=== PATIENT | male | born 1965 | race African-American/Black ===

== ENCOUNTER 2018-02-22 16:12 | Inpatient (IN) | payer OTHER ==
[2018-02-22 18:55] VITALS: BMI 20.5
[2018-02-22] MEDS ORDERED: METHADONE HCL 10 MG TABLET (FOR DETOX USE ONLY) PO ONE ×2 (22:00→23:58)
[2018-02-22] MEDS ORDERED: MELATONIN 5 MG TABLETS PO PRN (22:00)
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
[2018-02-22] MEDS ORDERED: ACETAMINOPHEN 325 MG TABLET (FP) PO PRN (23:58)
[2018-02-22] MEDS ORDERED: MAGNESIUM HYDROX 2400MG/30ML ORAL SUSPENSION 30 ML CUP PO PRN (23:58)
[2018-02-22] MEDS ORDERED: guaiFENesin/D-METHORPHAN HB 10 ML UNIT-DOSE CUPS PO PRN (23:58)
[2018-02-22] MEDS ORDERED: MENTHOL/PHENOL 1 EACH UD MM PRN (23:58)
[2018-02-22] MEDS ORDERED: chlordiazePOXIDE HCL 25 MG CAPSULE PO PRN (23:58)
[2018-02-22] MEDS ORDERED: MAGNESIUM CITRATE 300 ML BOTTLE PO PRN (23:58)
[2018-02-22] MEDS ORDERED: IBUPROFEN 400 MG TABLET (FP) PO PRN (23:58)
[2018-02-22] MEDS ORDERED: MAG HYDROX/AL HYDROX/SIMETH 30 ML UNIT-DOSE CUP PO PRN (23:58)
[2018-02-22] MEDS ORDERED: NICOTINE POLACRILEX 2 MG GUM BC PRN (23:58)
[2018-02-22] MEDS ORDERED: P-EPHED 60MG/TRIPROLIDI 2.5MG TABLET PO PRN (23:58)
[2018-02-22] MEDS ORDERED: LOPERAMIDE HCL 2 MG CAPSULE PO PRN (23:58)
[2018-02-23] MEDS ORDERED: chlordiazePOXIDE HCL 25 MG CAPSULE PO PRN (02:03)
[2018-02-23] MEDS ORDERED: METHADONE HCL 10 MG TABLET (FOR DETOX USE ONLY) PO ONE ×4 (02:03→22:00)
[2018-02-23] MEDS: chlordiazePOXIDE HCL 25 MG CAPSULE PO SCH ×6 (04:45→22:48)
[2018-02-23] MEDS ORDERED: chlordiazePOXIDE HCL 25 MG CAPSULE PO SCH (05:00)
[2018-02-23] MEDS ORDERED: METHADONE HCL 10 MG TABLET (FOR DETOX USE ONLY) PO SCH (10:00)
[2018-02-23] MEDS: PRENATAL VITAMINS W/ FOLIC ACID TABLET (FP) PO SCH (10:05)
[2018-02-23] MEDS: NICOTINE 14 MG/24 HOURS TOPICAL PATCH TD SCH (10:06)
--- NOTE | 2018-02-23 10:17 | PN ---
[facility] CIWA - CIWA Score Nausea/Vomitin Muscle Tremors: 3 Anxiety: 3 Agitation: 2 Paroxysmal Sweats: 1-Minimal Palms Moist Orientation: 0-Oriented Tacttile Disturbances: 1-Very Mild Itch/Numbness Auditory Disturbances: 1-Very Mild Visual Disturbances: 0-None Headache: 2-Mild CIWA-Ar Total Score: 16 [facility]HS COWS - Scale Resting Pulse: 0= [place] 80 or Below Sweatin= Chills/Flushing Restless Observation: 3= Extraneous Movement Pupil Size: 1= Pupils >than Normal Bone or Joint Aches: 2= Severe Diffuse Aches Runny Nose/ Eye Tearin= Runny Nose/Eyes GI Upset > 30mins: 3= Vomiting/Diarrhea Tremor Observation of Outstretched Hands: 2= Slight Tremor Visible Yawning Observation: 1= 1-2x During Session Anxiety or Irritability: 2=Irritable/Anxious Goose Flesh Skin: 0=Smooth Skin COWS Score: 17 [facility] Progress Note (SOAP) Subjective: alert,irritable,anxious,interrupted sleep,pain in the body and back,tremor Objective: 02/23/18 10:15 Vital Signs Temperature 98.1 F 02/23/18 09:48 Pulse Rate 66 02/23/18 09:48 Respiratory Rate 18 02/23/18 09:48 Blood Pressure 122/67 02/23/18 09:48 O2 Sat by Pulse Oximetry (%) ekg nsr,normal ecg qt/qtc 380/380 labs pending Assessment: 02/23/18 10:16 withdrawal symptom Plan: continue detox
[2018-02-23 10:32] LABS: MCH 31.9 pg (25.7-33.7); WHITE BLOOD COUNT 5.7 K/mm3 (4.0-10.0)
[2018-02-23 10:39] LABS: HEMATOCRIT 36.4 % (35.4-49); HEMOGLOBIN 12.2 GM/dL (11.7-16.9); MCHC 33.6 g/dl (32.0-35.9); MEAN CELL VOLUME 94.9 fl (80-96); PLATELET COUNT 169 K/MM3 (134-434); RBC 3.83 M/mm3 (4.00-5.60); RDW 13.3 % (11.9-15.9)
[2018-02-23 10:41] LABS: CHLORIDE 106 mmol/L (98-107); POTASSIUM 4.3 mmol/L (3.5-5.1); SODIUM 141 mmol/L (136-145)
[2018-02-23 10:51] LABS: ALBUMIN 3.2 g/dl (3.4-5.0); ALK PHOS 76 U/L (45-117); ANION GAP 5 (8-16); BILIRUBIN,TOTAL 0.5 mg/dL (0.2-1.0); BLOOD UREA NITROGEN 17 mg/dL (7-18); CALCIUM 8.5 mg/dL (8.5-10.1); CO2 30 mmol/L (21-32); GLUCOSE,RANDOM 89 mg/dL (74-106); SGOT/AST 19 U/L (15-37); SGPT/ALT 17 U/L (12-78); TOT PROT 5.8 g/dl (6.4-8.2)
[2018-02-23 18:56] LABS: URINE APPEARANCE CLEAR; URINE BILIRUBIN NEGATIVE (<2.0 mg/dL); URINE COLOR LTYELLOW; URINE GLUCOSE (UA) NEGATIVE (NEGATIVE); URINE KETONE NEGATIVE (NEGATIVE); URINE LEUK ESTERASE NEGATIVE (NEGATIVE); URINE NITRITE NEGATIVE (NEGATIVE); URINE PROTEIN NEGATIVE (NEGATIVE); URINE UROBILINOGEN NEGATIVE mg/dL (0.2-1.0)
[2018-02-23 19:07] LABS: URINE MUCUS RARE
[2018-02-23] MEDS ORDERED: THIAMINE HCL 100 MG TABLET (FP) PO SCH (22:00)
[2018-02-24] MEDS ORDERED: chlordiazePOXIDE 5 MG CAPSULE PO SCH (05:00)
[2018-02-24] MEDS: chlordiazePOXIDE HCL 25 MG CAPSULE PO SCH ×3 (06:12→18:03)
--- NOTE | 2018-02-24 08:56 | EKG ---
Test Reason : Blood Pressure : / mmHG Vent. Rate : 060 BPM Atrial Rate : 060 BPM P-R Int : 166 ms QRS Dur : 094 ms QT Int : 380 ms P-R-T Axes : 053 073 058 degrees QTc Int : 380 ms NORMAL SINUS RHYTHM NORMAL ECG WHEN COMPARED WITH ECG OF 16-SEP-2015 20:47, NO SIGNIFICANT CHANGE WAS FOUND Confirmed by ANNETTE REDDY MD ([id number]) on 02/24/2018 8:55:39 AM Referred By: Confirmed By:ANNETTE REDDY MD
[2018-02-24] MEDS ORDERED: METHADONE HCL 5 MG TABLET (FOR DETOX USE ONLY) PO SCH (10:00)
[2018-02-24] MEDS ORDERED: METHADONE HCL 10 MG TABLET (FOR DETOX USE ONLY) PO SCH (10:00)
[2018-02-24] MEDS: NICOTINE 14 MG/24 HOURS TOPICAL PATCH TD SCH (10:07)
[2018-02-24] MEDS: PRENATAL VITAMINS W/ FOLIC ACID TABLET (FP) PO SCH (10:08)
--- NOTE | 2018-02-24 11:26 | PN ---
[facility] CIWA - CIWA Score Nausea/Vomitin-Mild Nausea/No Vomiting Muscle Tremors: 4-Moderate,w/Arms Extend Anxiety: 3 Agitation: 3 Paroxysmal Sweats: 1-Minimal Palms Moist Orientation: 1-Uncertain about Date Tacttile Disturbances: 1-Very Mild Itch/Numbness Auditory Disturbances: 0-None Visual Disturbances: 0-None Headache: 0-None Present CIWA-Ar Total Score: 14 S COWS - Scale Resting Pulse: 0= [place] 80 or Below Sweatin= Chills/Flushing Restless Observation: 1= Difficult to Sit Still Pupil Size: 0= Normal to Room Light Bone or Joint Aches: 2= Severe Diffuse Aches Runny Nose/ Eye Tearin= Nasal Congestion GI Upset > 30mins: 2= Nausea/Diarrhea Tremor Observation of Outstretched Hands: 2= Slight Tremor Visible Yawning Observation: 1= 1-2x During Session Anxiety or Irritability: 1=Feels Anxious/Irritable Goose Flesh Skin: 3=Piloerection COWS Score: 14 [facility] Progress Note (SOAP) Subjective: trouble sleep at night sweat tremor body aches chill cold Objective: 02/24/18 11:36 Vital Signs Temperature 98.2 F 02/24/18 09:53 Pulse Rate 73 02/24/18 09:53 Respiratory Rate 18 02/24/18 09:53 Blood Pressure 131/76 02/24/18 09:53 O2 Sat by Pulse Oximetry (%) Laboratory Last Values WBC 5.7 K/mm3 (4.0-10.0) 02/23/18 08:00 RBC 3.83 M/mm3 (4.00-5.60) L 02/23/18 08:00 Hgb 12.2 GM/dL (11.7-16.9) 02/23/18 08:00 Hct 36.4 % (35.4-49) 02/23/18 08:00 MCV 94.9 fl (80-96) 02/23/18 08:00 MCH 31.9 pg (25.7-33.7) 02/23/18 08:00 MCHC 33.6 g/dl (32.0-35.9) 02/23/18 08:00 RDW 13.3 % (11.9-15.9) 02/23/18 08:00 Plt Count 169 K/MM3 (134-434) 02/23/18 08:00 MPV 10.0 fl (7.5-11.1) 02/23/18 08:00 Manual Slide Review 02/23/18 08:00 Platelet Comment No clumping noted 02/23/18 08:00 Sodium 141 mmol/L (136-145) 02/23/18 08:00 Potassium 4.3 mmol/L (3.5-5.1) 02/23/18 08:00 Chloride 106 mmol/L (98-107) 02/23/18 08:00 Carbon Dioxide 30 mmol/L (21-32) 02/23/18 08:00 Anion Gap 5 (8-16) L 02/23/18 08:00 BUN 17 mg/dL (7-18) 02/23/18 08:00 Creatinine 1.0 mg/dL (0.7-1.3) 02/23/18 08:00 Creat Clearance w eGFR > 60 (>60) 02/23/18 08:00 Random Glucose 89 mg/dL (74-106) 02/23/18 08:00 Calcium 8.5 mg/dL (8.5-10.1) 02/23/18 08:00 Total Bilirubin 0.5 mg/dL (0.2-1.0) 02/23/18 08:00 AST 19 U/L (15-37) D 02/23/18 08:00 ALT 17 U/L (12-78) D 02/23/18 08:00 Alkaline Phosphatase 76 U/L (45-117) 02/23/18 08:00 Total Protein 5.8 g/dl (6.4-8.2) L 02/23/18 08:00 Albumin 3.2 g/dl (3.4-5.0) L 02/23/18 08:00 Urine Color Ltyellow 02/23/18 Unknown Urine Appearance Clear 02/23/18 Unknown Urine pH 6.0 (5.0-8.0) 02/23/18 Unknown Ur Specific [place] 1.015 (1.001-1.035) 02/23/18 Unknown Urine Protein Negative (NEGATIVE) 02/23/18 Unknown Urine Glucose (UA) Negative (NEGATIVE) 02/23/18 Unknown Urine Ketones Negative (NEGATIVE) 02/23/18 Unknown Urine Blood 1+ (NEGATIVE) H 02/23/18 Unknown Urine Nitrite Negative (NEGATIVE) 02/23/18 Unknown Urine Bilirubin Negative (<2.0 mg/dL) 02/23/18 Unknown Urine Urobilinogen Negative mg/dL (0.2-1.0) 02/23/18 Unknown Ur Leukocyte Esterase Negative (NEGATIVE) 02/23/18 Unknown Urine WBC (Auto) 3 /hpf (3-5) 02/23/18 Unknown Urine RBC (Auto) 22 /hpf (0-3) 02/23/18 Unknown Urine Mucus Rare 02/23/18 Unknown RPR Titer Nonreactive (NONREACTIVE) 02/23/18 08:00 HIV 1&2 Antibody Screen Negative 02/23/18 08:00 HIV P24 Antigen Negative 02/23/18 08:00 labnoted Assessment: 02/24/18 11:36 withdrawal sx Plan: continue detox
[2018-02-24 17:05] VITALS: BP 132/79; PULSE 73; TEMP 98.2
--- NOTE | 2018-02-24 19:48 | PN ---
[facility] Progress Note Note: called by nurse stated that patient would like to leave,does mot want to complete treatment declined to give reason, seen by counselor,all attempts to convince patient to stay by counselor and nurse with no avail, patient did not want to wait,signed release ama
--- NOTE | 2018-02-24 19:55 | DS ---
[facility] Detox Discharge Summary Admission Date: 02/22/18 Discharge Date: 02/24/18 - History Present History: Alcohol Dependence, Opioid Dependence Additional Comments: patient did not want to complete treatment,seen by counselor,did not give reason for leaving,all attempts to convince patient to stay by counselor and nurse with no avail,eladio release ama,did not want to wait Pertinent Past History: asthma history of left hip replacement nicotine dependence - Physical Exam Results Vital Signs: Vital Signs Temperature 98.2 F 02/24/18 17:04 Pulse Rate 73 02/24/18 17:04 Respiratory Rate 18 02/24/18 17:04 Blood Pressure 132/79 02/24/18 17:04 O2 Sat by Pulse Oximetry (%) Pertinent Admission Physical Exam Findings: withdrawal signs and symptom Vital Signs Temperature 98.2 F 02/24/18 17:04 Pulse Rate 73 02/24/18 17:04 Respiratory Rate 18 02/24/18 17:04 Blood Pressure 132/79 02/24/18 17:04 O2 Sat by Pulse Oximetry (%) Laboratory Last Values WBC 5.7 K/mm3 (4.0-10.0) 02/23/18 08:00 RBC 3.83 M/mm3 (4.00-5.60) L 02/23/18 08:00 Hgb 12.2 GM/dL (11.7-16.9) 02/23/18 08:00 Hct 36.4 % (35.4-49) 02/23/18 08:00 MCV 94.9 fl (80-96) 02/23/18 08:00 MCH 31.9 pg (25.7-33.7) 02/23/18 08:00 MCHC 33.6 g/dl (32.0-35.9) 02/23/18 08:00 RDW 13.3 % (11.9-15.9) 02/23/18 08:00 Plt Count 169 K/MM3 (134-434) 02/23/18 08:00 MPV 10.0 fl (7.5-11.1) 02/23/18 08:00 Manual Slide Review 02/23/18 08:00 Platelet Comment No clumping noted 02/23/18 08:00 Sodium 141 mmol/L (136-145) 02/23/18 08:00 Potassium 4.3 mmol/L (3.5-5.1) 02/23/18 08:00 Chloride 106 mmol/L (98-107) 02/23/18 08:00 Carbon Dioxide 30 mmol/L (21-32) 02/23/18 08:00 Anion Gap 5 (8-16) L 02/23/18 08:00 BUN 17 mg/dL (7-18) 02/23/18 08:00 Creatinine 1.0 mg/dL (0.7-1.3) 02/23/18 08:00 Creat Clearance w eGFR > 60 (>60) 02/23/18 08:00 Random Glucose 89 mg/dL (74-106) 02/23/18 08:00 Calcium 8.5 mg/dL (8.5-10.1) 02/23/18 08:00 Total Bilirubin 0.5 mg/dL (0.2-1.0) 02/23/18 08:00 AST 19 U/L (15-37) D 02/23/18 08:00 ALT 17 U/L (12-78) D 02/23/18 08:00 Alkaline Phosphatase 76 U/L (45-117) 02/23/18 08:00 Total Protein 5.8 g/dl (6.4-8.2) L 02/23/18 08:00 Albumin 3.2 g/dl (3.4-5.0) L 02/23/18 08:00 Urine Color Ltyellow 02/23/18 Unknown Urine Appearance Clear 02/23/18 Unknown Urine pH 6.0 (5.0-8.0) 02/23/18 Unknown Ur Specific [place] 1.015 (1.001-1.035) 02/23/18 Unknown Urine Protein Negative (NEGATIVE) 02/23/18 Unknown Urine Glucose (UA) Negative (NEGATIVE) 02/23/18 Unknown Urine Ketones Negative (NEGATIVE) 02/23/18 Unknown Urine Blood 1+ (NEGATIVE) H 02/23/18 Unknown Urine Nitrite Negative (NEGATIVE) 02/23/18 Unknown Urine Bilirubin Negative (<2.0 mg/dL) 02/23/18 Unknown Urine Urobilinogen Negative mg/dL (0.2-1.0) 02/23/18 Unknown Ur Leukocyte Esterase Negative (NEGATIVE) 02/23/18 Unknown Urine WBC (Auto) 3 /hpf (3-5) 02/23/18 Unknown Urine RBC (Auto) 22 /hpf (0-3) 02/23/18 Unknown Urine Mucus Rare 02/23/18 Unknown RPR Titer Nonreactive (NONREACTIVE) 02/23/18 08:00 HIV 1&2 Antibody Screen Negative 02/23/18 08:00 HIV P24 Antigen Negative 02/23/18 08:00 - Medication Discharge Medications: Ambulatory Orders NK [No Known Home Medication] 02/22/18 - Diagnosis (1) Opioid dependence with withdrawal Current Visit: Yes Status: Chronic (2) Alcohol dependence with uncomplicated withdrawal Current Visit: Yes Status: Chronic (3) Nicotine dependence Current Visit: Yes Status: Chronic Qualifiers: Nicotine product type: cigarettes Substance use status: uncomplicated Qualified Code(s): F17.210 - Nicotine dependence, cigarettes, uncomplicated (4) Asthma Current Visit: Yes Status: Acute (5) History of left hip replacement Current Visit: Yes Status: Acute - AMA Did Patient Leave Against Medical Advice: Yes
[2018-02-25] MEDS ORDERED: chlordiazePOXIDE 5 MG CAPSULE PO SCH (05:00)
[2018-02-25] MEDS ORDERED: chlordiazePOXIDE HCL 10 MG CAPSULE PO SCH (05:00)
[2018-02-25] MEDS ORDERED: METHADONE HCL 5 MG TABLET (FOR DETOX USE ONLY) PO SCH (10:00)
[2018-02-26] MEDS ORDERED: chlordiazePOXIDE HCL 10 MG CAPSULE PO SCH (05:00)
[2018-02-26] MEDS ORDERED: METHADONE HCL 10 MG TABLET (FOR DETOX USE ONLY) PO SCH (10:00)
[2018-02-27] MEDS ORDERED: METHADONE HCL 5 MG TABLET (FOR DETOX USE ONLY) PO SCH (06:00)
[2018-02-27] MEDS ORDERED: METHADONE HCL 10 MG TABLET (FOR DETOX USE ONLY) PO SCH (10:00)
[2018-02-28] MEDS ORDERED: METHADONE HCL 5 MG TABLET (FOR DETOX USE ONLY) PO SCH (06:00)
== END 2018-02-24 19:40 | disposition left against medical advice (07) | DRG 770 ==
LOC: YASAS 16:12 → Y6N 20:22
PROVIDERS: ADMIT Surgery; ATTEND Surgery
PROC: HZ2ZZZZ Detoxification Services for Substance Abuse Treatment (ICD-10-PCS; principal; 2018-02-22)
DX: F11.23 Opioid dependence with withdrawal (principal); F10.230 Alcohol dependence with withdrawal, uncomplicated; F17.210 Nicotine dependence, cigarettes, uncomplicated; J45.909 Unspecified asthma, uncomplicated; Z96.642 Presence of left artificial hip joint; Z91.013 Allergy to seafood
CPT/HCPCS: 36415; 80053; 81003; 81015; 85027; 86593; 87389; 93005; 93010

== ENCOUNTER 2018-03-29 14:03 | Inpatient (IN) | payer OTHER ==
[2018-03-29 17:23] VITALS: BMI 19.2
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
[2018-03-29] MEDS ORDERED: guaiFENesin/D-METHORPHAN HB 10 ML UNIT-DOSE CUPS PO PRN (20:30)
[2018-03-29] MEDS ORDERED: P-EPHED 60MG/TRIPROLIDI 2.5MG TABLET PO PRN (20:30)
[2018-03-29] MEDS ORDERED: IBUPROFEN 400 MG TABLET (FP) PO PRN (20:30)
[2018-03-29] MEDS ORDERED: MAGNESIUM HYDROX 2400MG/30ML ORAL SUSPENSION 30 ML CUP PO PRN (20:30)
[2018-03-29] MEDS ORDERED: MENTHOL/PHENOL 1 EACH UD MM PRN (20:30)
[2018-03-29] MEDS ORDERED: NICOTINE POLACRILEX 2 MG GUM BC PRN (20:30)
[2018-03-29] MEDS ORDERED: chlordiazePOXIDE HCL 25 MG CAPSULE PO PRN (20:30)
[2018-03-29] MEDS ORDERED: LOPERAMIDE HCL 2 MG CAPSULE PO PRN (20:30)
[2018-03-29] MEDS ORDERED: ACETAMINOPHEN 325 MG TABLET (FP) PO PRN (20:30)
[2018-03-29] MEDS ORDERED: MAGNESIUM CITRATE 300 ML BOTTLE PO PRN (20:30)
[2018-03-29] MEDS ORDERED: hydrOXYzine PAMOATE 50 MG CAPSULE (FP) PO PRN (20:30)
[2018-03-29] MEDS ORDERED: MAG HYDROX/AL HYDROX/SIMETH 30 ML UNIT-DOSE CUP PO PRN (20:30)
[2018-03-29] MEDS ORDERED: chlordiazePOXIDE HCL 25 MG CAPSULE PO ONE (20:45)
[2018-03-29] MEDS ORDERED: METHADONE HCL 10 MG TABLET (FOR DETOX USE ONLY) PO ONE ×2 (20:45→23:00)
[2018-03-29] MEDS: chlordiazePOXIDE HCL 25 MG CAPSULE PO SCH (23:01)
[2018-03-29] MEDS: THIAMINE HCL 100 MG TABLET (FP) PO SCH (23:01)
[2018-03-30] MEDS: chlordiazePOXIDE HCL 25 MG CAPSULE PO SCH ×4 (05:59→22:38)
[2018-03-30] MEDS ORDERED: METHADONE HCL 10 MG TABLET (FOR DETOX USE ONLY) PO SCH (10:00)
[2018-03-30] MEDS: PRENATAL VITAMINS W/ FOLIC ACID TABLET (FP) PO SCH (10:22)
--- NOTE | 2018-03-30 10:26 | PN ---
[facility] CIWA - CIWA Score Nausea/Vomitin-No Nausea/No Vomiting Muscle Tremors: 4-Moderate,w/Arms Extend Anxiety: 4-Mod. Anxious/Guarded Agitation: 4-Moderately Restless Paroxysmal Sweats: 2 Orientation: 0-Oriented Tacttile Disturbances: 0-None Auditory Disturbances: 0-None Visual Disturbances: 0-None Headache: 0-None Present CIWA-Ar Total Score: 14 [facility] COWS - Scale Resting Pulse: 0= [place] 80 or Below Sweatin= Chills/Flushing Restless Observation: 3= Extraneous Movement Pupil Size: 2= Moderately Dilated Bone or Joint Aches: 4=Acute Joint/Muscle Pain Runny Nose/ Eye Tearin= None GI Upset > 30mins: 0= None Tremor Observation of Outstretched Hands: 1= Tremor [place], Not Seen Yawning Observation: 2= >3x During Session Anxiety or Irritability: 2=Irritable/Anxious Goose Flesh Skin: 0=Smooth Skin COWS Score: 15 [facility] Progress Note (SOAP) Subjective: ANXIETY,SWEATS,FATIGUE. OOB, NAD. Objective: 03/30/18 10:25 Vital Signs 03/30/18 03/30/18 03/30/18 03:30 06:30 06:49 Temperature 97.6 F Pulse Rate 43 L Respiratory 18 18 18 Rate Blood Pressure 102/66 03/30/18 09:29 Temperature 97.7 F Pulse Rate 64 Respiratory 18 Rate Blood Pressure 95/59 LABS PENDING Assessment: 03/30/18 10:26 WITHDRAWAL SX Plan: CONTINUE DETOX INCREASE PO FLUIDS
[2018-03-30 10:37] LABS: URINE APPEARANCE CLEAR; URINE BILIRUBIN NEGATIVE (<2.0 mg/dL); URINE COLOR LTYELLOW; URINE GLUCOSE (UA) NEGATIVE (NEGATIVE); URINE KETONE NEGATIVE (NEGATIVE); URINE LEUK ESTERASE NEGATIVE (NEGATIVE); URINE NITRITE NEGATIVE (NEGATIVE); URINE PROTEIN NEGATIVE (NEGATIVE)
[2018-03-30 10:40] LABS: ALBUMIN 3.1 g/dl (3.4-5.0); ALK PHOS 67 U/L (45-117); ANION GAP 10 MMOL/L (8-16); BILIRUBIN,TOTAL 0.4 mg/dL (0.2-1.0); BLOOD UREA NITROGEN 18 mg/dL (7-18); CALCIUM 8.3 mg/dL (8.5-10.1); CHLORIDE 109 mmol/L (98-107); CO2 26 mmol/L (21-32); GLUCOSE,RANDOM 93 mg/dL (74-106); POTASSIUM 4.2 mmol/L (3.5-5.1); SGOT/AST 14 U/L (15-37); SGPT/ALT 18 U/L (12-78); SODIUM 145 mmol/L (136-145); TOT PROT 5.8 g/dl (6.4-8.2)
[2018-03-30 10:41] LABS: HEMATOCRIT 38.4 % (35.4-49); HEMOGLOBIN 12.8 GM/dL (11.7-16.9); MCH 31.6 pg (25.7-33.7); MCHC 33.3 g/dl (32.0-35.9); MEAN CELL VOLUME 94.9 fl (80-96); MEAN PLT VOLUME 11.1 fl (7.5-11.1); PLATELET COUNT 147 K/MM3 (134-434); RBC 4.04 M/mm3 (4.00-5.60); RDW 13.8 % (11.9-15.9); WHITE BLOOD COUNT 4.7 K/mm3 (4.0-10.0)
--- NOTE | 2018-03-30 12:44 | CONSULT ---
[facility] Psychiatric Consult - Data Date of interview: 03/30/18 Admission source: [facility] Identifying data: Readmission to [facility] for this 53 y/o AA male self- referred for detoxification treatment (heroin,cocaine,alcohol).Admitted to [address] [place] [address].Patient is single,a father of six,homeless,unemployed and currently supported on [facility] benefits. Substance Abuse History: Confirmed by the patient in this interview.Smoking history: Current every day smoker. Have you smoked in the past 12 months: Yes. Aproximately how many cigarettes per day: 5. Hx Chewing Tobacco Use: No. Initiated information on smoking cessation: Yes. 'Breaking Loose' booklet given : 03/29/18. - Substance & Tx. History. Hx Alcohol Use: No (Beer, vodka, henessey). Hx Substance Use: Yes. Substance Use Type: Cocaine, Heroin. Hx Substance Use Treatment: Yes. - Substances Abused. Cocaine. Route: Inhalation. Frequency: Daily. Amount used: 5 bags. Age of first use: 17. Date of Last Use: 03/28/18. Heroin. Route: Inhalation. Frequency: Daily. Amount used: 5 bags. Age of first use: 31. Date of Last Use: 03/28/18. Alcohol. Route: Oral. Frequency: 3-6 times per week. Amount used: 1 pint, 4 beers. Age of first use: 20. Date of Last Use: 03/27/18 Medical History: Bronchial asthma,antecedent of three severe overdoses with heroin and a history of orthosurgeries (total left hip replacement in 2010 + ankle surgery in 2006). Psychiatric History: Patient denies.Mr Jean Baptiste used to attend [facility] program in [place] (was on suboxone maintenance).No reported history of suicide attempts. Physical/Sexual Abuse/Trauma History: Mr Jean Baptiste denies history of abuse. Additional Comment: Urine Drug Screen Results: MARCIE-Cocaine, OPI-Opiates, OXY- Oxycodone.Noted. Mental Status Exam - Mental Status Exam Alert and Oriented to: Time, Place, Person Cognitive Function: Good Patient Appearance: Well Groomed Mood: Withdrawn, Anxious Affect: Mood Congruent Patient Behavior: Fatigued, Appropriate, Cooperative Speech Pattern: Clear, Appropriate Voice Loudness: Normal Thought Process: Goal Oriented Thought Disorder: Not Present Hallucinations: Denies Suicidal Ideation: Denies Homicidal Ideation: Denies Insight/Judgement: Poor Sleep: Poorly, Difficulty falling asleep Appetite: Fair Muscle strength/Tone: Normal Gait/Station: Normal Psychiatric Findings - Problem List ([place] 1, 2,3) (1) Opioid dependence with withdrawal Current Visit: Yes Status: Acute (2) Alcohol dependence with uncomplicated withdrawal Current Visit: Yes Status: Acute (3) Cocaine dependence, uncomplicated Current Visit: Yes Status: Acute (4) Nicotine dependence Current Visit: Yes Status: Acute Qualifiers: Nicotine product type: cigarettes Substance use status: in withdrawal Qualified Code(s): F17.213 - Nicotine dependence, cigarettes, with withdrawal Comment: counseled cessation - not ready (5) Insomnia Current Visit: Yes Status: Acute - Initial Treatment Plan Initial Treatment Plan: Psychoeducation.Sleep hygiene.Detoxification in progress.Ambien 5 mg po hs prn.Patient is made aware of risk of sleep- walking.Agrees to careplan.Observation.
[2018-03-30] MEDS: THIAMINE HCL 100 MG TABLET (FP) PO SCH (22:38)
[2018-03-31] MEDS: chlordiazePOXIDE HCL 25 MG CAPSULE PO SCH ×3 (06:09→18:05)
[2018-03-31] MEDS: METHADONE HCL 5 MG TABLET (FOR DETOX USE ONLY) PO SCH (10:26)
[2018-03-31] MEDS: PRENATAL VITAMINS W/ FOLIC ACID TABLET (FP) PO SCH (10:26)
--- NOTE | 2018-03-31 13:25 | PN ---
[facility] CIWA - CIWA Score Nausea/Vomitin Muscle Tremors: 3 Anxiety: 3 Agitation: 2 Paroxysmal Sweats: 3 Orientation: 0-Oriented Tacttile Disturbances: 0-None Auditory Disturbances: 0-None Visual Disturbances: 0-None Headache: 1-Very Mild CIWA-Ar Total Score: 14 [facility] COWS - Scale Resting Pulse: 0= [place] 80 or Below Sweatin= Chills/Flushing Restless Observation: 3= Extraneous Movement Pupil Size: 0= Normal to Room Light Bone or Joint Aches: 2= Severe Diffuse Aches Runny Nose/ Eye Tearin= Runny Nose/Eyes GI Upset > 30mins: 2= Nausea/Diarrhea Tremor Observation of Outstretched Hands: 2= Slight Tremor Visible Yawning Observation: 1= 1-2x During Session Anxiety or Irritability: 2=Irritable/Anxious Goose Flesh Skin: 0=Smooth Skin COWS Score: 15 S Progress Note (SOAP) Subjective: Interrupted sleep, anxious, sweating Objective: 03/31/18 13:24 Last Vital Signs Temp Pulse Resp BP Pulse Ox 97.1 F L 77 18 120/79 03/31/18 13:08 03/31/18 13:08 03/31/18 13:08 03/31/18 13:08 Laboratory Tests 03/30/18 03/30/18 03/30/18 08:00 08:00 08:00 WBC RBC Hgb Hct MCV MCH MCHC RDW Plt Count MPV Sodium 145 Potassium 4.2 Chloride 109 H Carbon Dioxide 26 Anion Gap 10 BUN 18 Creatinine 1.0 Creat Clearance w eGFR > 60 Random Glucose 93 Calcium 8.3 L Total Bilirubin 0.4 AST 14 L D ALT 18 Alkaline Phosphatase 67 Total Protein 5.8 L Albumin 3.1 L Urine Color Urine Appearance Urine pH Ur Specific [place] Urine Protein Urine Glucose (UA) Urine Ketones Urine Blood Urine Nitrite Urine Bilirubin Urine Urobilinogen Ur Leukocyte Esterase RPR Titer Nonreactive HIV 1&2 Antibody Screen Negative HIV P24 Antigen Negative 03/30/18 03/30/18 08:20 09:00 WBC 4.7 RBC 4.04 Hgb 12.8 Hct 38.4 MCV 94.9 MCH 31.6 MCHC 33.3 RDW 13.8 Plt Count 147 MPV 11.1 D Sodium Potassium Chloride Carbon Dioxide Anion Gap BUN Creatinine Creat Clearance w eGFR Random Glucose Calcium Total Bilirubin AST ALT Alkaline Phosphatase Total Protein Albumin Urine Color Ltyellow Urine Appearance Clear Urine pH 6.0 Ur Specific [place] 1.017 Urine Protein Negative Urine Glucose (UA) Negative Urine Ketones Negative Urine Blood Negative Urine Nitrite Negative Urine Bilirubin Negative Urine Urobilinogen 2.0 Ur Leukocyte Esterase Negative RPR Titer HIV 1&2 Antibody Screen HIV P24 Antigen Labs reviewed Assessment: 03/31/18 13:24 Withdrawal symptoms Plan: Continue detox
[2018-03-31] MEDS: chlordiazePOXIDE 5 MG CAPSULE PO SCH (22:25)
[2018-03-31] MEDS: THIAMINE HCL 100 MG TABLET (FP) PO SCH (22:25)
[2018-04-01] MEDS: chlordiazePOXIDE 5 MG CAPSULE PO SCH ×3 (05:14→17:31)
[2018-04-01] MEDS: PRENATAL VITAMINS W/ FOLIC ACID TABLET (FP) PO SCH (10:31)
[2018-04-01] MEDS: METHADONE HCL 5 MG TABLET (FOR DETOX USE ONLY) PO SCH (10:31)
--- NOTE | 2018-04-01 10:50 | PN ---
[facility] Progress Note (SOAP) Subjective: SLIGHT ANXIETY, SWEATS, FATIGUE. Objective: 04/01/18 10:50 Vital Signs 04/01/18 04/01/18 04/01/18 03:20 06:11 06:30 Temperature 98 F Pulse Rate 59 L Respiratory 18 18 18 Rate Blood Pressure 117/74 04/01/18 04/01/18 09:42 10:43 Temperature 97.6 F 97.6 F Pulse Rate 68 68 Respiratory 18 18 Rate Blood Pressure 109/64 109/64 Laboratory Tests 03/30/18 03/30/18 03/30/18 08:00 08:00 08:00 WBC RBC Hgb Hct MCV MCH MCHC RDW Plt Count MPV Sodium 145 Potassium 4.2 Chloride 109 H Carbon Dioxide 26 Anion Gap 10 BUN 18 Creatinine 1.0 Creat Clearance w eGFR > 60 Random Glucose 93 Calcium 8.3 L Total Bilirubin 0.4 AST 14 L D ALT 18 Alkaline Phosphatase 67 Total Protein 5.8 L Albumin 3.1 L Urine Color Urine Appearance Urine pH Ur Specific [place] Urine Protein Urine Glucose (UA) Urine Ketones Urine Blood Urine Nitrite Urine Bilirubin Urine Urobilinogen Ur Leukocyte Esterase RPR Titer Nonreactive HIV 1&2 Antibody Screen Negative HIV P24 Antigen Negative 03/30/18 03/30/18 08:20 09:00 WBC 4.7 RBC 4.04 Hgb 12.8 Hct 38.4 MCV 94.9 MCH 31.6 MCHC 33.3 RDW 13.8 Plt Count 147 MPV 11.1 D Sodium Potassium Chloride Carbon Dioxide Anion Gap BUN Creatinine Creat Clearance w eGFR Random Glucose Calcium Total Bilirubin AST ALT Alkaline Phosphatase Total Protein Albumin Urine Color Ltyellow Urine Appearance Clear Urine pH 6.0 Ur Specific [place] 1.017 Urine Protein Negative Urine Glucose (UA) Negative Urine Ketones Negative Urine Blood Negative Urine Nitrite Negative Urine Bilirubin Negative Urine Urobilinogen 2.0 Ur Leukocyte Esterase Negative RPR Titer HIV 1&2 Antibody Screen HIV P24 Antigen Assessment: 04/01/18 10:50 WITHDRAWAL SX Plan: CONTINUE DETOX
--- NOTE | 2018-04-01 11:25 | EKG ---
Test Reason : Blood Pressure : / mmHG Vent. Rate : 047 BPM Atrial Rate : 047 BPM P-R Int : 160 ms QRS Dur : 094 ms QT Int : 394 ms P-R-T Axes : 057 076 063 degrees QTc Int : 348 ms SINUS BRADYCARDIA OTHERWISE NORMAL ECG WHEN COMPARED WITH ECG OF 23-FEB-2018 02:26, NO SIGNIFICANT CHANGE WAS FOUND Confirmed by EDWARD HALL MD ([id number]) on 04/01/2018 11:24:51 AM Referred By: Oneida Casillas Confirmed By:EDWARD HALL MD
[2018-04-01] MEDS: MELATONIN 5 MG TABLETS PO PRN (21:56)
[2018-04-01] MEDS: chlordiazePOXIDE HCL 10 MG CAPSULE PO SCH (22:03)
[2018-04-01] MEDS: THIAMINE HCL 100 MG TABLET (FP) PO SCH (22:27)
[2018-04-02] MEDS: chlordiazePOXIDE HCL 10 MG CAPSULE PO SCH ×3 (05:14→17:24)
[2018-04-02] MEDS ORDERED: METHADONE HCL 10 MG TABLET (FOR DETOX USE ONLY) PO SCH (10:00)
[2018-04-02] MEDS ORDERED: METHADONE HCL 5 MG TABLET (FOR DETOX USE ONLY) PO ONE (10:14)
[2018-04-02] MEDS: PRENATAL VITAMINS W/ FOLIC ACID TABLET (FP) PO SCH (10:27)
--- NOTE | 2018-04-02 12:10 | PN ---
[facility] Progress Note (SOAP) Subjective: OOB AMBULATING WITH STEADY GAIT. ANXIETY, RESTLESS NESS REGARDING AFTERCARE AVAILABILITY. PT IS WORKING WITH HIS COUNSELOR DONALD ROGERS RE:[facility] IN A.M. Objective: 04/02/18 12:09 Vital Signs 04/02/18 04/02/18 06:21 10:20 Temperature 98.2 F 97.6 F Pulse Rate 62 76 Respiratory 102 H 18 Rate Blood Pressure 102/65 116/71 Laboratory Tests 03/30/18 03/30/18 03/30/18 08:00 08:00 08:00 WBC RBC Hgb Hct MCV MCH MCHC RDW Plt Count MPV Sodium 145 Potassium 4.2 Chloride 109 H Carbon Dioxide 26 Anion Gap 10 BUN 18 Creatinine 1.0 Creat Clearance w eGFR > 60 Random Glucose 93 Calcium 8.3 L Total Bilirubin 0.4 AST 14 L D ALT 18 Alkaline Phosphatase 67 Total Protein 5.8 L Albumin 3.1 L Urine Color Urine Appearance Urine pH Ur Specific [place] Urine Protein Urine Glucose (UA) Urine Ketones Urine Blood Urine Nitrite Urine Bilirubin Urine Urobilinogen Ur Leukocyte Esterase RPR Titer Nonreactive HIV 1&2 Antibody Screen Negative HIV P24 Antigen Negative 03/30/18 03/30/18 08:20 09:00 WBC 4.7 RBC 4.04 Hgb 12.8 Hct 38.4 MCV 94.9 MCH 31.6 MCHC 33.3 RDW 13.8 Plt Count 147 MPV 11.1 D Sodium Potassium Chloride Carbon Dioxide Anion Gap BUN Creatinine Creat Clearance w eGFR Random Glucose Calcium Total Bilirubin AST ALT Alkaline Phosphatase Total Protein Albumin Urine Color Ltyellow Urine Appearance Clear Urine pH 6.0 Ur Specific [place] 1.017 Urine Protein Negative Urine Glucose (UA) Negative Urine Ketones Negative Urine Blood Negative Urine Nitrite Negative Urine Bilirubin Negative Urine Urobilinogen 2.0 Ur Leukocyte Esterase Negative RPR Titer HIV 1&2 Antibody Screen HIV P24 Antigen Assessment: 04/02/18 12:09 NAD Plan: CONTINUE DETOX
[2018-04-02] MEDS: MELATONIN 5 MG TABLETS PO PRN (21:42)
[2018-04-02] MEDS: THIAMINE HCL 100 MG TABLET (FP) PO SCH (21:43)
[2018-04-03] MEDS ORDERED: METHADONE HCL 5 MG TABLET (FOR DETOX USE ONLY) PO SCH (06:00)
[2018-04-03 06:07] VITALS: BP 115/69; PULSE 76; TEMP 97
--- NOTE | 2018-04-03 16:00 | PN ---
B[facility] Progress Note Note: PT DISCHARGED EARLIER TODAY. DETOX COMPLETED.
--- NOTE | 2018-04-03 16:02 | DS ---
[facility] Detox Discharge Summary Admission Date: 03/29/18 Discharge Date: 04/03/18 - History Present History: Alcohol Dependence, Cocaine Dependence, Opioid Dependence Additional Comments: DETOX COMPLETED. Pertinent Past History: SEE DX BELOW - Physical Exam Results Vital Signs: Vital Signs Temperature 97.0 F L 04/03/18 06:07 Pulse Rate 76 04/03/18 06:07 Respiratory Rate 18 04/03/18 06:07 Blood Pressure 115/69 04/03/18 06:07 O2 Sat by Pulse Oximetry (%) Pertinent Admission Physical Exam Findings: WITHDRAWAL SX Laboratory Tests 03/30/18 03/30/18 03/30/18 08:00 08:00 08:00 WBC RBC Hgb Hct MCV MCH MCHC RDW Plt Count MPV Sodium 145 Potassium 4.2 Chloride 109 H Carbon Dioxide 26 Anion Gap 10 BUN 18 Creatinine 1.0 Creat Clearance w eGFR > 60 Random Glucose 93 Calcium 8.3 L Total Bilirubin 0.4 AST 14 L D ALT 18 Alkaline Phosphatase 67 Total Protein 5.8 L Albumin 3.1 L Urine Color Urine Appearance Urine pH Ur Specific [place] Urine Protein Urine Glucose (UA) Urine Ketones Urine Blood Urine Nitrite Urine Bilirubin Urine Urobilinogen Ur Leukocyte Esterase RPR Titer Nonreactive HIV 1&2 Antibody Screen Negative HIV P24 Antigen Negative 03/30/18 03/30/18 08:20 09:00 WBC 4.7 RBC 4.04 Hgb 12.8 Hct 38.4 MCV 94.9 MCH 31.6 MCHC 33.3 RDW 13.8 Plt Count 147 MPV 11.1 D Sodium Potassium Chloride Carbon Dioxide Anion Gap BUN Creatinine Creat Clearance w eGFR Random Glucose Calcium Total Bilirubin AST ALT Alkaline Phosphatase Total Protein Albumin Urine Color Ltyellow Urine Appearance Clear Urine pH 6.0 Ur Specific [place] 1.017 Urine Protein Negative Urine Glucose (UA) Negative Urine Ketones Negative Urine Blood Negative Urine Nitrite Negative Urine Bilirubin Negative Urine Urobilinogen 2.0 Ur Leukocyte Esterase Negative RPR Titer HIV 1&2 Antibody Screen HIV P24 Antigen - Treatment Hospital Course: Detox Protocol Followed, Detoxed Safely, Responded well, Discharged Condition Good - Medication Discharge Medications: Ambulatory Orders NK [No Known Home Medication] 02/22/18 - Diagnosis (1) Alcohol dependence with uncomplicated withdrawal Status: Acute (2) Nicotine dependence Status: Chronic Qualifiers: Nicotine product type: cigarettes Substance use status: in withdrawal Qualified Code(s): F17.213 - Nicotine dependence, cigarettes, with withdrawal (3) Opioid dependence with withdrawal Status: Acute (4) History of left hip replacement Status: Chronic (5) Asthma Status: Chronic Qualifiers: Asthma severity: unspecified severity Asthma persistence: unspecified Asthma complication type: unspecified Qualified Code(s): J45.909 - Unspecified asthma, uncomplicated (6) Cocaine dependence, uncomplicated Status: Chronic - AMA Did Patient Leave Against Medical Advice: No
== END 2018-04-03 06:40 | disposition home or self-care (01) | DRG 774 ==
LOC: YASAS 14:03 → Y3N 19:35
PROC: HZ2ZZZZ Detoxification Services for Substance Abuse Treatment (ICD-10-PCS; principal; 2018-03-29)
DX: F10.230 Alcohol dependence with withdrawal, uncomplicated (principal); F14.20 Cocaine dependence, uncomplicated; F17.213 Nicotine dependence, cigarettes, with withdrawal; G47.00 Insomnia, unspecified; F32.9 Major depressive disorder, single episode, unspecified; J45.909 Unspecified asthma, uncomplicated; Z96.642 Presence of left artificial hip joint; Z91.013 Allergy to seafood
CPT/HCPCS: 36415; 80053; 81003; 85027; 86593; 87389; 93005; 93010

== ENCOUNTER 2018-11-27 18:31 | Inpatient (IN) | payer OTHER ==
[2018-11-27 20:06] VITALS: BMI 21.8
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
[2018-11-27] MEDS ORDERED: BISMUTH SUBSALICYLATE 524 MG/30 ML UD PO PRN (20:56)
[2018-11-27] MEDS ORDERED: IBUPROFEN 400 MG TABLET (FP) PO PRN ×2 (20:56)
[2018-11-27] MEDS ORDERED: hydrOXYzine PAMOATE 25 MG CAPSULE (FP) PO PRN (20:56)
[2018-11-27] MEDS ORDERED: DICYCLOMINE HCL 10 MG CAPSULE PO PRN (20:56)
[2018-11-27] MEDS ORDERED: P-EPHED 60MG/TRIPROLIDI 2.5MG TABLET PO PRN (20:56)
[2018-11-27] MEDS ORDERED: MAGNESIUM CITRATE 300 ML BOTTLE PO PRN (20:56)
[2018-11-27] MEDS ORDERED: cloNIDine HCL 0.1 MG TABLET PO PRN (20:56)
[2018-11-27] MEDS ORDERED: NICOTINE POLACRILEX 2 MG GUM BUC PRN (20:56)
[2018-11-27] MEDS ORDERED: MAG HYDROX/AL HYDROX/SIMETH 30 ML UNIT-DOSE CUP PO PRN (20:56)
[2018-11-27] MEDS ORDERED: guaiFENesin 200 MG/10 ML 10 ML UNIT-DOSE CUPS PO PRN (20:56)
[2018-11-27] MEDS ORDERED: METHOCARBAMOL 500 MG TABLET PO PRN (20:56)
[2018-11-27] MEDS ORDERED: ONDANSETRON *ODT* 4 MG TABLET SL PRN (20:56)
[2018-11-27] MEDS ORDERED: ACETAMINOPHEN 325 MG TABLET (FP) PO PRN ×2 (20:56)
[2018-11-27] MEDS ORDERED: MENTHOL/PHENOL 1 EACH UD MM PRN (20:56)
[2018-11-27] MEDS ORDERED: MAGNESIUM HYDROX 2400MG/30ML ORAL SUSPENSION 30 ML CUP PO PRN (20:56)
[2018-11-27] MEDS ORDERED: chlordiazePOXIDE HCL 10 MG CAPSULE PO PRN (20:56)
[2018-11-27] MEDS ORDERED: ALBUTEROL SO4 8 GM HFA INHALER IH PRN (20:59)
[2018-11-27] MEDS: chlordiazePOXIDE HCL 25 MG CAPSULE PO SCH (22:49)
[2018-11-27] MEDS: THIAMINE HCL 100 MG TABLET (FP) PO SCH (22:49)
[2018-11-27] MEDS: MELATONIN 5 MG TABLETS PO PRN (22:50)
[2018-11-27] MEDS ORDERED: METHADONE HCL 10 MG TABLET (FOR DETOX USE ONLY) PO ONE (23:00)
[2018-11-27 23:47] LABS: EPI CELLS 0.1 /HPF (0-5/HPF); PH,URINE 5.5 (5.0-8.0); URINE APPEARANCE CLEAR; URINE BACTERIA 0.7 /hpf (NEGATIVE); URINE BILIRUBIN NEGATIVE (NEGATIVE); URINE CASTS 1 /lpf (0-8); URINE COLOR YELLOW; URINE GLUCOSE (UA) NEGATIVE (NEGATIVE); URINE KETONE NEGATIVE (NEGATIVE); URINE LEUK ESTERASE NEGATIVE (NEGATIVE); URINE NITRITE NEGATIVE (NEGATIVE); URINE PROTEIN NEGATIVE (NEGATIVE); URINE RBC 18 /hpf (0-4); URINE WBC 5 /hpf (0-5)
[2018-11-28] MEDS: chlordiazePOXIDE HCL 25 MG CAPSULE PO SCH ×2 (05:34→14:14)
[2018-11-28 09:38] LABS: HEMATOCRIT 37.6 % (35.4-49); HEMOGLOBIN 12.6 GM/dL (11.7-16.9); MCH 32.2 pg (25.7-33.7); MCHC 33.5 g/dl (32.0-35.9); MEAN CELL VOLUME 96.2 fl (80-96); MEAN PLT VOLUME 10.9 fl (7.5-11.1); PLATELET COUNT 158 K/MM3 (134-434); WHITE BLOOD COUNT 4.6 K/mm3 (4.0-10.0)
[2018-11-28 09:49] LABS: BILIRUBIN,TOTAL 0.3 mg/dL (0.2-1); CALCIUM 7.9 mg/dL (8.5-10.1); CREATININE 1.1 mg/dL (0.55-1.3); POTASSIUM 4.1 mmol/L (3.5-5.1); TOT PROT 5.3 g/dl (6.4-8.2)
[2018-11-28] MEDS ORDERED: METHADONE HCL 5 MG TABLET (FOR DETOX USE ONLY) PO ONE (10:00)
--- NOTE | 2018-11-28 10:06 | PN ---
[facility] CIWA - CIWA Score Nausea/Vomitin-Mild Nausea/No Vomiting Muscle Tremors: 3 Anxiety: 1-Mildly Anxious Agitation: 2 Paroxysmal Sweats: 1-Minimal Palms Moist Orientation: 2-Disoriented Date<2 days Tacttile Disturbances: 1-Very Mild Itch/Numbness Auditory Disturbances: 0-None Visual Disturbances: 0-None Headache: 0-None Present CIWA-Ar Total Score: 11 S COWS - Scale Resting Pulse: 0= [place] 80 or Below Sweatin= Chills/Flushing Restless Observation: 0= Sits Still Pupil Size: 0= Normal to Room Light Bone or Joint Aches: 1= Mild Discomfort Runny Nose/ Eye Tearin= None GI Upset > 30mins: 2= Nausea/Diarrhea Tremor Observation of Outstretched Hands: 2= Slight Tremor Visible Yawning Observation: 1= 1-2x During Session Anxiety or Irritability: 1=Feels Anxious/Irritable Goose Flesh Skin: 3=Piloerection COWS Score: 11 [facility] Progress Note (SOAP) Subjective: doing well with librium and methadone protocol tired preferring to stay on bed today Objective: 11/28/18 10:06 Vital Signs Temperature 98.0 F 11/28/18 09:05 Pulse Rate 57 L 11/28/18 09:05 Respiratory Rate 18 11/28/18 09:05 Blood Pressure 95/57 L 11/28/18 09:05 O2 Sat by Pulse Oximetry (%) Laboratory Last Values WBC 4.6 K/mm3 (4.0-10.0) 11/28/18 07:00 RBC 3.90 M/mm3 (4.00-5.60) L 11/28/18 07:00 Hgb 12.6 GM/dL (11.7-16.9) 11/28/18 07:00 Hct 37.6 % (35.4-49) 11/28/18 07:00 MCV 96.2 fl (80-96) H 11/28/18 07:00 MCH 32.2 pg (25.7-33.7) 11/28/18 07:00 MCHC 33.5 g/dl (32.0-35.9) 11/28/18 07:00 RDW 13.0 % (11.9-15.9) 11/28/18 07:00 Plt Count 158 K/MM3 (134-434) 11/28/18 07:00 MPV 10.9 fl (7.5-11.1) 11/28/18 07:00 Sodium 144 mmol/L (136-145) 11/28/18 07:00 Potassium 4.1 mmol/L (3.5-5.1) 11/28/18 07:00 Chloride 110 mmol/L (98-107) H 11/28/18 07:00 Carbon Dioxide 28 mmol/L (21-32) 11/28/18 07:00 Anion Gap 5 MMOL/L (8-16) L 11/28/18 07:00 BUN 20 mg/dL (7-18) H 11/28/18 07:00 Creatinine 1.1 mg/dL (0.55-1.3) 11/28/18 07:00 Est GFR (CKD-EPI)AfAm 88.98 11/28/18 07:00 Est GFR (CKD-EPI)NonAf 76.77 11/28/18 07:00 Random Glucose 86 mg/dL (74-106) 11/28/18 07:00 Calcium 7.9 mg/dL (8.5-10.1) L 11/28/18 07:00 Total Bilirubin 0.3 mg/dL (0.2-1) 11/28/18 07:00 AST 12 U/L (15-37) L 11/28/18 07:00 ALT 12 U/L (13-61) L 11/28/18 07:00 Alkaline Phosphatase 69 U/L (45-117) 11/28/18 07:00 Total Protein 5.3 g/dl (6.4-8.2) L 11/28/18 07:00 Albumin 3.0 g/dl (3.4-5.0) L 11/28/18 07:00 Urine Color Yellow 11/27/18 23:40 Urine Appearance Clear 11/27/18 23:40 Urine pH 5.5 (5.0-8.0) 11/27/18 23:40 Ur Specific [place] 1.021 (1.010-1.035) 11/27/18 23:40 Urine Protein Negative (NEGATIVE) 11/27/18 23:40 Urine Glucose (UA) Negative (NEGATIVE) 11/27/18 23:40 Urine Ketones Negative (NEGATIVE) 11/27/18 23:40 Urine Blood 2+ (NEGATIVE) H 11/27/18 23:40 Urine Nitrite Negative (NEGATIVE) 11/27/18 23:40 Urine Bilirubin Negative (NEGATIVE) 11/27/18 23:40 Urine Urobilinogen 1.0 mg/dL (0.2-1.0) 11/27/18 23:40 Ur Leukocyte Esterase Negative (NEGATIVE) 11/27/18 23:40 Urine WBC (Auto) 5 /hpf (0-5) 11/27/18 23:40 Urine RBC (Auto) 18 /hpf (0-4) 11/27/18 23:40 Urine Casts (Auto) 1 /lpf (0-8) 11/27/18 23:40 U Epithel Cells (Auto) 0.1 /HPF (0-5/HPF) 11/27/18 23:40 Urine Bacteria (Auto) 0.7 /hpf (NEGATIVE) 11/27/18 23:40 lab noted low Ca++ Assessment: 11/28/18 10:07 alcohol and opiate withdrawal sx low calcium Plan: continue detox oscal
[2018-11-28] MEDS: PRENATAL VITAMINS W/ FOLIC ACID TABLET (FP) PO SCH (10:33)
[2018-11-28] MEDS: NICOTINE 14 MG/24 HOURS TOPICAL PATCH TD SCH (10:34)
[2018-11-28] MEDS: CALCIUM 250MG/VIT-D 125 UNITS 1 COMBO TABLET PO SCH ×2 (11:05→22:16)
[2018-11-28] MEDS: chlordiazePOXIDE 5 MG CAPSULE PO SCH (22:16)
[2018-11-28] MEDS: MELATONIN 5 MG TABLETS PO PRN (22:16)
[2018-11-28] MEDS: THIAMINE HCL 100 MG TABLET (FP) PO SCH (22:16)
[2018-11-29] MEDS: chlordiazePOXIDE 5 MG CAPSULE PO SCH ×2 (05:34→14:03)
[2018-11-29 09:18] VITALS: BP 122/84; PULSE 68; TEMP 98.5
[2018-11-29] MEDS ORDERED: METHADONE HCL 10 MG TABLET (FOR DETOX USE ONLY) PO ONE (10:00)
[2018-11-29] MEDS: CALCIUM 250MG/VIT-D 125 UNITS 1 COMBO TABLET PO SCH (10:24)
[2018-11-29] MEDS: PRENATAL VITAMINS W/ FOLIC ACID TABLET (FP) PO SCH (10:24)
[2018-11-29] MEDS: NICOTINE 14 MG/24 HOURS TOPICAL PATCH TD SCH (10:25)
--- NOTE | 2018-11-29 11:08 | PN ---
S CIWA - CIWA Score Nausea/Vomitin Muscle Tremors: 3 Anxiety: 2 Agitation: 2 Paroxysmal Sweats: 1-Minimal Palms Moist Orientation: 0-Oriented Tacttile Disturbances: 1-Very Mild Itch/Numbness Auditory Disturbances: 1-Very Mild Visual Disturbances: 0-None Headache: 2-Mild CIWA-Ar Total Score: 14 [facility]HS COWS - Scale Resting Pulse: 0= ME 80 or Below Sweatin= Chills/Flushing Restless Observation: 1= Difficult to Sit Still Pupil Size: 1= Pupils >than Normal Bone or Joint Aches: 2= Severe Diffuse Aches Runny Nose/ Eye Tearin= Runny Nose/Eyes GI Upset > 30mins: 2= Nausea/Diarrhea Tremor Observation of Outstretched Hands: 2= Slight Tremor Visible Yawning Observation: 1= 1-2x During Session Anxiety or Irritability: 2=Irritable/Anxious Goose Flesh Skin: 0=Smooth Skin COWS Score: 14 [facility] Progress Note (SOAP) Subjective: alert,irritable,anxious,interrupted sleep,pain in the body and back,tremor Objective: 11/29/18 11:07 Vital Signs Temperature 98.5 F 11/29/18 09:18 Pulse Rate 68 11/29/18 09:18 Respiratory Rate 18 11/29/18 09:18 Blood Pressure 122/84 11/29/18 09:18 O2 Sat by Pulse Oximetry (%) Laboratory Last Values WBC 4.6 K/mm3 (4.0-10.0) 11/28/18 07:00 RBC 3.90 M/mm3 (4.00-5.60) L 11/28/18 07:00 Hgb 12.6 GM/dL (11.7-16.9) 11/28/18 07:00 Hct 37.6 % (35.4-49) 11/28/18 07:00 MCV 96.2 fl (80-96) H 11/28/18 07:00 MCH 32.2 pg (25.7-33.7) 11/28/18 07:00 MCHC 33.5 g/dl (32.0-35.9) 11/28/18 07:00 RDW 13.0 % (11.9-15.9) 11/28/18 07:00 Plt Count 158 K/MM3 (134-434) 11/28/18 07:00 MPV 10.9 fl (7.5-11.1) 11/28/18 07:00 Sodium 144 mmol/L (136-145) 11/28/18 07:00 Potassium 4.1 mmol/L (3.5-5.1) 11/28/18 07:00 Chloride 110 mmol/L (98-107) H 11/28/18 07:00 Carbon Dioxide 28 mmol/L (21-32) 11/28/18 07:00 Anion Gap 5 MMOL/L (8-16) L 11/28/18 07:00 BUN 20 mg/dL (7-18) H 11/28/18 07:00 Creatinine 1.1 mg/dL (0.55-1.3) 11/28/18 07:00 Est GFR (CKD-EPI)AfAm 88.98 11/28/18 07:00 Est GFR (CKD-EPI)NonAf 76.77 11/28/18 07:00 Random Glucose 86 mg/dL (74-106) 11/28/18 07:00 Calcium 7.9 mg/dL (8.5-10.1) L 11/28/18 07:00 Total Bilirubin 0.3 mg/dL (0.2-1) 11/28/18 07:00 AST 12 U/L (15-37) L 11/28/18 07:00 ALT 12 U/L (13-61) L 11/28/18 07:00 Alkaline Phosphatase 69 U/L (45-117) 11/28/18 07:00 Total Protein 5.3 g/dl (6.4-8.2) L 11/28/18 07:00 Albumin 3.0 g/dl (3.4-5.0) L 11/28/18 07:00 Urine Color Yellow 11/27/18 23:40 Urine Appearance Clear 11/27/18 23:40 Urine pH 5.5 (5.0-8.0) 11/27/18 23:40 Ur Specific [place] 1.021 (1.010-1.035) 11/27/18 23:40 Urine Protein Negative (NEGATIVE) 11/27/18 23:40 Urine Glucose (UA) Negative (NEGATIVE) 11/27/18 23:40 Urine Ketones Negative (NEGATIVE) 11/27/18 23:40 Urine Blood 2+ (NEGATIVE) H 11/27/18 23:40 Urine Nitrite Negative (NEGATIVE) 11/27/18 23:40 Urine Bilirubin Negative (NEGATIVE) 11/27/18 23:40 Urine Urobilinogen 1.0 mg/dL (0.2-1.0) 11/27/18 23:40 Ur Leukocyte Esterase Negative (NEGATIVE) 11/27/18 23:40 Urine WBC (Auto) 5 /hpf (0-5) 11/27/18 23:40 Urine RBC (Auto) 18 /hpf (0-4) 11/27/18 23:40 Urine Casts (Auto) 1 /lpf (0-8) 11/27/18 23:40 U Epithel Cells (Auto) 0.1 /HPF (0-5/HPF) 11/27/18 23:40 Urine Bacteria (Auto) 0.7 /hpf (NEGATIVE) 11/27/18 23:40 RPR Titer Nonreactive (NONREACTIVE) 11/28/18 07:00 Assessment: 11/29/18 11:07 withdrawal symptom Plan: continue detox,repeat ua
--- NOTE | 2018-11-29 11:25 | PN ---
[facility] Progress Note Note: patient did not want to complete treatment,would like to leave for personal problem,relocate in [place], all attempts to convince patient to stay with no avail,address high risk of relapsing,microscopic hematuria, patient stated he has kidney stone left,his pmd is phyllis Hill,patient will sse his PMD or another Medical Provider in [place] patient signed release AMA,advise to gp to nearest [facility] room if any emergency medical problem
--- NOTE | 2018-11-29 11:27 | DS ---
[facility] Detox Discharge Summary Admission Date: 11/27/18 Discharge Date: 12/06/18 - History Additional Comments: patient signed release ama Pertinent Past History: asthma kidney stone left - Physical Exam Results Vital Signs: Vital Signs Temperature 98.5 F 11/29/18 09:18 Pulse Rate 68 11/29/18 09:18 Respiratory Rate 18 11/29/18 09:18 Blood Pressure 122/84 11/29/18 09:18 O2 Sat by Pulse Oximetry (%) Pertinent Admission Physical Exam Findings: withdrawal sign and symptom Vital Signs Temperature 98.5 F 11/29/18 09:18 Pulse Rate 68 11/29/18 09:18 Respiratory Rate 18 11/29/18 09:18 Blood Pressure 122/84 11/29/18 09:18 O2 Sat by Pulse Oximetry (%) Laboratory Last Values WBC 4.6 K/mm3 (4.0-10.0) 11/28/18 07:00 RBC 3.90 M/mm3 (4.00-5.60) L 11/28/18 07:00 Hgb 12.6 GM/dL (11.7-16.9) 11/28/18 07:00 Hct 37.6 % (35.4-49) 11/28/18 07:00 MCV 96.2 fl (80-96) H 11/28/18 07:00 MCH 32.2 pg (25.7-33.7) 11/28/18 07:00 MCHC 33.5 g/dl (32.0-35.9) 11/28/18 07:00 RDW 13.0 % (11.9-15.9) 11/28/18 07:00 Plt Count 158 K/MM3 (134-434) 11/28/18 07:00 MPV 10.9 fl (7.5-11.1) 11/28/18 07:00 Sodium 144 mmol/L (136-145) 11/28/18 07:00 Potassium 4.1 mmol/L (3.5-5.1) 11/28/18 07:00 Chloride 110 mmol/L (98-107) H 11/28/18 07:00 Carbon Dioxide 28 mmol/L (21-32) 11/28/18 07:00 Anion Gap 5 MMOL/L (8-16) L 11/28/18 07:00 BUN 20 mg/dL (7-18) H 11/28/18 07:00 Creatinine 1.1 mg/dL (0.55-1.3) 11/28/18 07:00 Est GFR (CKD-EPI)AfAm 88.98 11/28/18 07:00 Est GFR (CKD-EPI)NonAf 76.77 11/28/18 07:00 Random Glucose 86 mg/dL (74-106) 11/28/18 07:00 Calcium 7.9 mg/dL (8.5-10.1) L 11/28/18 07:00 Total Bilirubin 0.3 mg/dL (0.2-1) 11/28/18 07:00 AST 12 U/L (15-37) L 11/28/18 07:00 ALT 12 U/L (13-61) L 11/28/18 07:00 Alkaline Phosphatase 69 U/L (45-117) 11/28/18 07:00 Total Protein 5.3 g/dl (6.4-8.2) L 11/28/18 07:00 Albumin 3.0 g/dl (3.4-5.0) L 11/28/18 07:00 Urine Color Yellow 11/27/18 23:40 Urine Appearance Clear 11/27/18 23:40 Urine pH 5.5 (5.0-8.0) 11/27/18 23:40 Ur Specific [place] 1.021 (1.010-1.035) 11/27/18 23:40 Urine Protein Negative (NEGATIVE) 11/27/18 23:40 Urine Glucose (UA) Negative (NEGATIVE) 11/27/18 23:40 Urine Ketones Negative (NEGATIVE) 11/27/18 23:40 Urine Blood 2+ (NEGATIVE) H 11/27/18 23:40 Urine Nitrite Negative (NEGATIVE) 11/27/18 23:40 Urine Bilirubin Negative (NEGATIVE) 11/27/18 23:40 Urine Urobilinogen 1.0 mg/dL (0.2-1.0) 11/27/18 23:40 Ur Leukocyte Esterase Negative (NEGATIVE) 11/27/18 23:40 Urine WBC (Auto) 5 /hpf (0-5) 11/27/18 23:40 Urine RBC (Auto) 18 /hpf (0-4) 11/27/18 23:40 Urine Casts (Auto) 1 /lpf (0-8) 11/27/18 23:40 U Epithel Cells (Auto) 0.1 /HPF (0-5/HPF) 11/27/18 23:40 Urine Bacteria (Auto) 0.7 /hpf (NEGATIVE) 11/27/18 23:40 RPR Titer Nonreactive (NONREACTIVE) 11/28/18 07:00 - Medication Discharge Medications: Ambulatory Orders Albuterol Sulfate Inhaler - [Ventolin Hfa Inhaler -] 2 inh PO Q4H PRN 11/27/18 - AMA Did Patient Leave Against Medical Advice: Yes
[2018-11-29] MEDS ORDERED: chlordiazePOXIDE HCL 10 MG CAPSULE PO PRN (21:00)
[2018-11-29] MEDS ORDERED: chlordiazePOXIDE HCL 10 MG CAPSULE PO SCH (21:00)
[2018-11-30] MEDS ORDERED: METHADONE HCL 5 MG TABLET (FOR DETOX USE ONLY) PO ONE (06:00)
== END 2018-11-29 11:34 | disposition left against medical advice (07) | DRG 770 ==
LOC: YASAS 18:31 → Y3N 21:12
PROVIDERS: ADMIT Surgery; ATTEND Surgery
PROC: HZ2ZZZZ Detoxification Services for Substance Abuse Treatment (ICD-10-PCS; principal; 2018-11-27)
DX: F11.23 Opioid dependence with withdrawal (principal); F10.230 Alcohol dependence with withdrawal, uncomplicated; F14.20 Cocaine dependence, uncomplicated; F17.213 Nicotine dependence, cigarettes, with withdrawal; J45.909 Unspecified asthma, uncomplicated; Z96.642 Presence of left artificial hip joint
CPT/HCPCS: 36415; 80053; 81003; 85027; 86593

== ENCOUNTER 2019-01-14 22:04 | Emergency (ER) | payer OTHER ==
[2019-01-14 22:08] VITALS: BP 121/66; PULSE 85; TEMP 98.2; BMI 21.5
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
== END 2019-01-14 22:45 | disposition home or self-care (01) ==
LOC: JERFT 22:04
PROC: 0HQ1XZZ Repair Face Skin, External Approach (ICD-10-PCS; principal; 2019-01-14)
DX: S01.81XA Laceration without foreign body of other part of head, initial encounter (principal); W26.8XXA Contact with other sharp object(s), not elsewhere classified, initial encounter; Y93.89 Activity, other specified; Y92.098 Other place in other non-institutional residence as the place of occurrence of the external cause; Y99.8 Other external cause status
CPT/HCPCS: 12011-25; 99281-25

== ENCOUNTER 2019-01-21 19:59 | Emergency (ER) | payer OTHER ==
[2019-01-21 20:02] VITALS: BP 117/70; PULSE 79; TEMP 98.4; BMI 21.5
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
== END 2019-01-21 20:25 | disposition home or self-care (01) ==
LOC: JERFT 19:59
DX: Z48.817 Encounter for surgical aftercare following surgery on the skin and subcutaneous tissue (principal); Z48.02 Encounter for removal of sutures
CPT/HCPCS: 99281-25

== ENCOUNTER 2020-08-30 19:09 | Inpatient (IN) | payer OTHER ==
[2020-08-31] MEDS ORDERED: BISMUTH SUBSALICYLATE 524 MG/30 ML UD PO PRN (00:01)
[2020-08-31] MEDS ORDERED: METHADONE HCL 10 MG TABLET (FOR DETOX USE ONLY) PO ONE (00:01)
[2020-08-31] MEDS ORDERED: MAG HYDROX/AL HYDROX/SIMETH 30 ML UNIT-DOSE CUP PO PRN (00:01)
[2020-08-31] MEDS ORDERED: ACETAMINOPHEN 325 MG TABLET (FP) PO PRN ×2 (00:01)
[2020-08-31] MEDS ORDERED: IBUPROFEN 400 MG TABLET (FP) PO PRN (00:01)
[2020-08-31] MEDS ORDERED: MAGNESIUM CITRATE 300 ML BOTTLE PO PRN (00:01)
[2020-08-31] MEDS ORDERED: MAGNESIUM HYDROX 2400MG/30ML ORAL SUSPENSION 30 ML CUP PO PRN (00:01)
[2020-08-31] MEDS ORDERED: NICOTINE POLACRILEX 2 MG GUM BUC PRN (00:01)
[2020-08-31] MEDS ORDERED: MENTHOL/PHENOL 1 EACH UD MM PRN (00:01)
[2020-08-31] MEDS ORDERED: ONDANSETRON *ODT* 4 MG TABLET SL PRN (00:01)
[2020-08-31 00:51] VITALS: BMI 19.1
[2020-08-31] MEDS ORDERED: METHADONE HCL 10 MG TABLET (FOR DETOX USE ONLY) ONE (01:17)
[2020-08-31] MEDS: PRENATAL VITAMINS W/ FOLIC ACID TABLET (FP) PO SCH (11:10)
[2020-08-31] MEDS: NICOTINE 14 MG/24 HOURS TOPICAL PATCH TD SCH (11:10)
[2020-08-31 11:51] LABS: HEMOGLOBIN 13.9 GM/dL (11.7-16.9); MCH 31.9 pg (25.7-33.7); MCHC 33.1 g/dl (32.0-35.9); MEAN CELL VOLUME 96.3 fl (80-96); MEAN PLT VOLUME 10.6 fl (7.5-11.1); PLATELET COUNT 166 K/MM3 (134-434); RBC 4.36 M/mm3 (4.00-5.60); WHITE BLOOD COUNT 5.6 K/mm3 (4.0-10.0)
[2020-08-31 11:57] LABS: POTASSIUM 4.8 mmol/L (3.5-5.1)
[2020-08-31 12:02] LABS: ALBUMIN 3.4 g/dl (3.4-5.0); BLOOD UREA NITROGEN 11.6 mg/dL (7-18)
[2020-08-31 12:06] LABS: CREATININE 1.1 mg/dL (0.55-1.3)
[2020-08-31 12:07] LABS: BILIRUBIN,TOTAL 1.1 mg/dL (0.2-1); TOT PROT 6.3 g/dl (6.4-8.2)
[2020-08-31] MEDS: cloNIDine HCL 0.1 MG TABLET PO PRN ×2 (15:10→22:30)
[2020-08-31] MEDS: THIAMINE HCL 100 MG TABLET (FP) PO SCH (22:30)
[2020-08-31] MEDS: MELATONIN 5 MG TABLETS PO SCH (22:30)
[2020-08-31] MEDS: METHOCARBAMOL 500 MG TABLET PO PRN (22:30)
[2020-09-01] MEDS ORDERED: METHADONE HCL 10 MG TABLET (FOR DETOX USE ONLY) ONE (09:19)
[2020-09-01] MEDS ORDERED: METHADONE HCL 5 MG TABLET (FOR DETOX USE ONLY) ONE (09:19)
[2020-09-01] MEDS ORDERED: METHADONE (DETOX) 20 MG, METHADONE (DETOX) 5 MG PO ONE (10:00)
[2020-09-01] MEDS: PRENATAL VITAMINS W/ FOLIC ACID TABLET (FP) PO SCH (10:20)
[2020-09-01] MEDS: NICOTINE 14 MG/24 HOURS TOPICAL PATCH TD SCH (10:20)
[2020-09-01] MEDS: SERTRALINE HCL 50 MG TABLET (FP) PO SCH (10:22)
[2020-09-01 14:17] LABS: HIV INTERPRETATION NEGATIVE (NEGATIVE)
[2020-09-01] MEDS: diazePAM 5 MG TABLET PO PRN (16:51)
[2020-09-01] MEDS: THIAMINE HCL 100 MG TABLET (FP) PO SCH (22:16)
[2020-09-01] MEDS: METHOCARBAMOL 500 MG TABLET PO PRN (22:16)
[2020-09-01] MEDS: MELATONIN 5 MG TABLETS PO SCH (22:17)
[2020-09-02] MEDS ORDERED: METHADONE HCL 10 MG TABLET (FOR DETOX USE ONLY) PO ONE (10:00)
[2020-09-02] MEDS: NICOTINE 14 MG/24 HOURS TOPICAL PATCH TD SCH (10:16)
[2020-09-02] MEDS: SERTRALINE HCL 50 MG TABLET (FP) PO SCH (10:16)
[2020-09-02] MEDS: PRENATAL VITAMINS W/ FOLIC ACID TABLET (FP) PO SCH (10:16)
[2020-09-02] MEDS: diazePAM 5 MG TABLET PO PRN ×2 (15:15→22:20)
[2020-09-02] MEDS: THIAMINE HCL 100 MG TABLET (FP) PO SCH (22:20)
[2020-09-02] MEDS: cloNIDine HCL 0.1 MG TABLET PO PRN (22:20)
[2020-09-02] MEDS: MELATONIN 5 MG TABLETS PO SCH (22:20)
[2020-09-03] MEDS ORDERED: METHADONE HCL 5 MG TABLET (FOR DETOX USE ONLY) ONE (09:02)
[2020-09-03] MEDS ORDERED: METHADONE HCL 10 MG TABLET (FOR DETOX USE ONLY) ONE (09:03)
[2020-09-03] MEDS ORDERED: METHADONE (DETOX) 10 MG, METHADONE (DETOX) 5 MG PO ONE (10:00)
[2020-09-03] MEDS: NICOTINE 14 MG/24 HOURS TOPICAL PATCH TD SCH (10:03)
[2020-09-03] MEDS: SERTRALINE HCL 50 MG TABLET (FP) PO SCH (10:03)
[2020-09-03] MEDS: PRENATAL VITAMINS W/ FOLIC ACID TABLET (FP) PO SCH (10:03)
[2020-09-03] MEDS: THIAMINE HCL 100 MG TABLET (FP) PO SCH (22:07)
[2020-09-03] MEDS: MELATONIN 5 MG TABLETS PO SCH (22:07)
[2020-09-03] MEDS: diazePAM 5 MG TABLET PO PRN (23:00)
[2020-09-04] MEDS: PRENATAL VITAMINS W/ FOLIC ACID TABLET (FP) PO SCH (09:56)
[2020-09-04] MEDS: NICOTINE 14 MG/24 HOURS TOPICAL PATCH TD SCH (09:56)
[2020-09-04] MEDS: SERTRALINE HCL 50 MG TABLET (FP) PO SCH (09:56)
[2020-09-04] MEDS ORDERED: METHADONE HCL 10 MG TABLET (FOR DETOX USE ONLY) PO ONE (10:00)
[2020-09-04] MEDS ORDERED: METHADONE HCL 5 MG TABLET (FOR DETOX USE ONLY) PO ONE (10:00)
[2020-09-04 11:08] VITALS: BP 132/92; PULSE 83; TEMP 97.1
[2020-09-05] MEDS ORDERED: METHADONE HCL 5 MG TABLET (FOR DETOX USE ONLY) PO ONE (06:00)
== END 2020-09-04 09:57 | disposition home or self-care (01) | DRG 897 ==
LOC: YASAS 19:09 → Y6N 08-31 10:27
PROVIDERS: ADMIT Allergy & Immunology; ATTEND Allergy & Immunology
PROC: HZ2ZZZZ Detoxification Services for Substance Abuse Treatment (ICD-10-PCS; principal; 2020-08-31)
DX: F11.23 Opioid dependence with withdrawal (principal); F19.282 Other psychoactive substance dependence with psychoactive substance-induced sleep disorder; F17.210 Nicotine dependence, cigarettes, uncomplicated; F32.9 Major depressive disorder, single episode, unspecified; F41.9 Anxiety disorder, unspecified; G47.00 Insomnia, unspecified; J45.909 Unspecified asthma, uncomplicated; Z96.642 Presence of left artificial hip joint; Z91.013 Allergy to seafood; Z56.0 Unemployment, unspecified
CPT/HCPCS: 36415; 80053; 85027; 86780; 87389; 93005; 93010; C9803; J0735; U0003

== ENCOUNTER 2021-11-06 20:33 | Emergency (ER) | payer OTHER ==
[2021-11-06 20:55] VITALS: BP 135/86; PULSE 88; TEMP 97.7; BMI 17.7
[2021-11-06] MEDS ORDERED: ONDANSETRON 4 MG/2 ML VIAL IVPUSH ONE (22:17)
[2021-11-06] MEDS ORDERED: SODIUM CHLORIDE 0.9% 1000 ML INFUS.BAG IV ONE (22:17)
[2021-11-06] MEDS ORDERED: ONDANSETRON 4 MG/2 ML VIAL ONE (22:24)
[2021-11-06 22:47] LABS: BASO % 0.8 % (0-2.0); HEMATOCRIT 46.1 % (35.4-49); LYMPH % 9.6 % (8-40); MCH 31.5 pg (25.7-33.7); MCHC 34.6 g/dl (32.0-35.9); MEAN CELL VOLUME 91.1 fl (80-96); MEAN PLT VOLUME 9.7 fl (7.5-11.1); MONO % 4.7 % (3.8-10.2); NEUT % 84.9 % (42.8-82.8); PLATELET COUNT 198 10^3/uL (134-434); RBC 5.06 M/mm3 (4.00-5.60); RDW 13.1 % (11.9-15.9); WHITE BLOOD COUNT 9.1 K/mm3 (4.0-10.0)
[2021-11-06 23:19] LABS: CALCIUM 9.1 mg/dL (8.5-10.1)
[2021-11-06 23:20] LABS: ALBUMIN 3.7 g/dl (3.4-5.0); BLOOD UREA NITROGEN 20.9 mg/dL (7-18); MAGNESIUM 2.1 mg/dL (1.8-2.4)
[2021-11-06 23:24] LABS: BILIRUBIN,TOTAL 1.1 mg/dL (0.2-1); TOT PROT 7.5 g/dl (6.4-8.2)
[2021-11-06] MEDS ORDERED: ACETAMINOPHEN 1000 MG/100 ML BAG IVPB ONE (23:40)
[2021-11-06] MEDS ORDERED: cloNIDine HCL 0.1 MG TABLET PO ONE (23:42)
[2021-11-07] MEDS ORDERED: cloNIDine HCL 0.1 MG TABLET ONE (00:13)
[2021-11-07] MEDS ORDERED: ACETAMINOPHEN INJECTION 100 ML IVPB ONE (00:13)
[2021-11-07 02:24] LABS: METHADONE, UR NEGATIVE (NEGATIVE); PHENCYCLIDINE,URINE NEGATIVE (NEGATIVE)
[2021-11-07 02:25] LABS: URINE BENZODIAZEPINES NEGATIVE (NEGATIVE)
[2021-11-07 02:51] LABS: COCAINE, UR POSITIVE (NEGATIVE); OPIATES, URI POSITIVE (NEGATIVE); URINE AMPHETAMINES NEGATIVE (NEGATIVE); URINE BARBITURATES NEGATIVE (NEGATIVE)
== END 2021-11-07 02:26 | disposition short-term general hospital (02) ==
LOC: JER 20:33
PROC: 3E033GC Introduction of Other Therapeutic Substance into Peripheral Vein, Percutaneous Approach (ICD-10-PCS; principal; 2021-11-06)
DX: F11.23 Opioid dependence with withdrawal (principal)
CPT/HCPCS: 36415; 71045-TC-FY; 74177-TC; 80053; 80307; 83690; 83735; 85025; 93005; 93010; 99285-25; C9803-CS; J0735; Q9967; U0003; U0005

== ENCOUNTER 2021-11-07 02:02 | Inpatient (IN) | payer OTHER ==
[2021-11-07 02:33] VITALS: BMI 16.7
[2021-11-07] MEDS ORDERED: DICYCLOMINE HCL 10 MG CAPSULE PO PRN (03:30)
[2021-11-07] MEDS ORDERED: ACETAMINOPHEN 325 MG TABLET (FP) PO PRN ×2 (03:30)
[2021-11-07] MEDS ORDERED: MAGNESIUM HYDROX 2400MG/30ML ORAL SUSPENSION 30 ML CUP PO PRN (03:30)
[2021-11-07] MEDS ORDERED: MAG HYDROX/AL HYDROX/SIMETH 30 ML UNIT-DOSE CUP PO PRN (03:30)
[2021-11-07] MEDS ORDERED: BENZOCAINE/MENTHOL (CHLORASEPTIC ) LOZENGE MM PRN (03:30)
[2021-11-07] MEDS ORDERED: ONDANSETRON *ODT* 4 MG TABLET SL PRN (03:30)
[2021-11-07] MEDS ORDERED: LOPERAMIDE HCL 2 MG CAPSULE PO PRN (03:30)
[2021-11-07] MEDS ORDERED: MAGNESIUM CITRATE 300 ML BOTTLE PO PRN (03:30)
[2021-11-07] MEDS ORDERED: BISMUTH SUBSALICYLATE 524 MG/30 ML PO PRN (03:30)
[2021-11-07] MEDS ORDERED: IBUPROFEN 400 MG TABLET (FP) PO PRN (03:30)
[2021-11-07] MEDS ORDERED: methaDONE HCL 10 MG TABLET (FOR DETOX USE ONLY) PO ONE (03:41)
[2021-11-07] MEDS: NICOTINE 14 MG/24 HOURS TOPICAL PATCH TD SCH (10:41)
[2021-11-07] MEDS: PRENATAL VITAMINS W/ FOLIC ACID TABLET (FP) PO SCH (10:41)
[2021-11-07] MEDS: NICOTINE POLACRILEX 2 MG GUM BUC PRN (10:45)
[2021-11-07] MEDS ORDERED: FLU VACC QS2021-22(6MOS UP)/PF 60 MCG/0.5 ML SYRINGE IM ONE (12:00)
[2021-11-07 12:44] LABS: HIV INTERPRETATION NEGATIVE (NEGATIVE)
[2021-11-07] MEDS: METHOCARBAMOL 500 MG TABLET PO PRN ×2 (17:45→22:33)
[2021-11-07] MEDS: LORazepam 0.5 MG TABLET PO PRN ×2 (17:45→22:33)
[2021-11-07] MEDS: MELATONIN 5 MG TABLETS PO SCH (22:33)
[2021-11-07] MEDS: THIAMINE HCL 100 MG TABLET (FP) PO SCH (22:33)
[2021-11-08] MEDS: cloNIDine HCL 0.1 MG TABLET PO PRN (05:21)
[2021-11-08] MEDS ORDERED: methaDONE HCL 10 MG TABLET (FOR DETOX USE ONLY) ONE (09:06)
[2021-11-08] MEDS: PRENATAL VITAMINS W/ FOLIC ACID TABLET (FP) PO SCH (10:07)
[2021-11-08] MEDS: METHOCARBAMOL 500 MG TABLET PO PRN ×2 (10:09→18:30)
[2021-11-08] MEDS: NICOTINE 14 MG/24 HOURS TOPICAL PATCH TD SCH (10:12)
[2021-11-08 12:02] LABS: CALCIUM 8.7 mg/dL (8.5-10.1)
[2021-11-08 12:03] LABS: ALBUMIN 3.4 g/dl (3.4-5.0); BLOOD UREA NITROGEN 15.3 mg/dL (7-18)
[2021-11-08 12:08] LABS: HEMATOCRIT 43.6 % (35.4-49); MCH 31.7 pg (25.7-33.7); MCHC 34.3 g/dl (32.0-35.9); MEAN CELL VOLUME 92.4 fl (80-96); MEAN PLT VOLUME 9.8 fl (7.5-11.1); PLATELET COUNT 188 10^3/uL (134-434); RBC 4.72 M/mm3 (4.00-5.60); RDW 12.9 % (11.9-15.9); TOT PROT 6.3 g/dl (6.4-8.2)
[2021-11-08 12:10] LABS: BILIRUBIN,TOTAL 1.5 mg/dL (0.2-1)
[2021-11-08] MEDS: diazePAM 5 MG TABLET PO PRN ×2 (18:30→22:33)
[2021-11-08] MEDS: MELATONIN 5 MG TABLETS PO SCH (22:29)
[2021-11-08] MEDS: THIAMINE HCL 100 MG TABLET (FP) PO SCH (22:29)
[2021-11-08] MEDS: NICOTINE POLACRILEX 2 MG GUM BUC PRN (22:35)
[2021-11-09] MEDS: cloNIDine HCL 0.1 MG TABLET PO PRN (06:22)
[2021-11-09] MEDS ORDERED: methaDONE HCL 10 MG TABLET (FOR DETOX USE ONLY) PO ONE (10:00)
[2021-11-09] MEDS: PRENATAL VITAMINS W/ FOLIC ACID TABLET (FP) PO SCH (10:10)
[2021-11-09] MEDS: NICOTINE 14 MG/24 HOURS TOPICAL PATCH TD SCH (10:10)
[2021-11-09] MEDS: NICOTINE 10 MG CARTRIDGE (INHALER) IH SCH (10:49)
[2021-11-09 14:08] LABS: SARS-CoV-2 NAA Not Detected (Not Detected)
[2021-11-09] MEDS: MELATONIN 5 MG TABLETS PO SCH (22:04)
[2021-11-09] MEDS: diazePAM 5 MG TABLET PO PRN (22:04)
[2021-11-09] MEDS: THIAMINE HCL 100 MG TABLET (FP) PO SCH (22:04)
[2021-11-09] MEDS: METHOCARBAMOL 500 MG TABLET PO PRN (22:07)
[2021-11-10] MEDS: NICOTINE POLACRILEX 2 MG GUM BUC PRN (06:50)
[2021-11-10] MEDS ORDERED: methaDONE HCL 10 MG TABLET (FOR DETOX USE ONLY) ONE (09:07)
[2021-11-10] MEDS ORDERED: COLLOIDAL OATMEAL 1 BAR EACH TP PRN (09:27)
[2021-11-10] MEDS: PRENATAL VITAMINS W/ FOLIC ACID TABLET (FP) PO SCH (10:18)
[2021-11-10] MEDS: NICOTINE 10 MG CARTRIDGE (INHALER) IH SCH (10:21)
[2021-11-10] MEDS: THIAMINE HCL 100 MG TABLET (FP) PO SCH (22:33)
[2021-11-10] MEDS: diazePAM 5 MG TABLET PO PRN (22:34)
[2021-11-10] MEDS: MELATONIN 5 MG TABLETS PO SCH (22:35)
[2021-11-10] MEDS: METHOCARBAMOL 500 MG TABLET PO PRN (22:36)
[2021-11-11] MEDS: diazePAM 5 MG TABLET PO PRN (06:07)
[2021-11-11 09:34] VITALS: BP 116/63; PULSE 78; TEMP 96.4
[2021-11-11] MEDS ORDERED: methaDONE HCL 10 MG TABLET (FOR DETOX USE ONLY) PO ONE (10:00)
[2021-11-11] MEDS: NICOTINE 10 MG CARTRIDGE (INHALER) IH SCH (10:07)
[2021-11-11] MEDS: PRENATAL VITAMINS W/ FOLIC ACID TABLET (FP) PO SCH (10:07)
[2021-11-11] MEDS ORDERED: ALBUTEROL SO4 HFA INHALER IH PRN (10:26)
== END 2021-11-11 12:43 | disposition home or self-care (01) | DRG 897 ==
LOC: YASAS 02:02 → Y6N 03:46
PROVIDERS: ADMIT Allergy & Immunology; ATTEND Allergy & Immunology
PROC: HZ2ZZZZ Detoxification Services for Substance Abuse Treatment (ICD-10-PCS; principal; 2021-11-07)
DX: F11.23 Opioid dependence with withdrawal (principal); F14.20 Cocaine dependence, uncomplicated; F17.213 Nicotine dependence, cigarettes, with withdrawal; F41.9 Anxiety disorder, unspecified; F32.A Depression, unspecified; G47.00 Insomnia, unspecified; J45.909 Unspecified asthma, uncomplicated; Z96.641 Presence of right artificial hip joint; Z98.890 Other specified postprocedural states; Z28.310 Unvaccinated for COVID-19
CPT/HCPCS: 36415; 80053; 85027; 86780; 87389; C9803-CS; J0735; U0003; U0005

== ENCOUNTER 2022-01-27 04:27 | Day surgery (SDC) | payer OTHER ==
[2022-01-26 15:44] VITALS: BMI 19.2
[2022-01-27] MEDS ORDERED: BUPIVACAINE HCL/PF 0.25% (2.5MG/ML) 10 ML VIAL ONE (07:19)
[2022-01-27] MEDS ORDERED: TRIAMCINOLONE ACET 40MG/1ML VIAL ONE (07:19)
[2022-01-27] MEDS ORDERED: LIDOCAINE HCL/PF 1% SDV 5ML VIAL ONE (07:19)
[2022-01-27] MEDS ORDERED: LIDOCAINE HCL 1% PRESERVATIVE FREE - 30ML VIAL IJ ONE ×2 (11:30→11:36)
[2022-01-27] MEDS ORDERED: TRIAMCINOLONE ACETONIDE 40 MG/ML 10 ML VIAL IJ ONE ×2 (11:31→11:37)
[2022-01-27] MEDS ORDERED: BUPIVACAINE HCL/PF 0.25% (2.5MG/ML) 10 ML VIAL IJ ONE ×2 (11:32→11:37)
[2022-01-27 15:00] VITALS: BP 124/73; PULSE 63; TEMP 98
== END 2022-01-27 12:35 | disposition home or self-care (01) ==
LOC: JASU-SURG 04:27
PROVIDERS: ATTEND Pain Medicine Pain Medicine
PROC: 3E0U3BZ Introduction of Anesthetic Agent into Joints, Percutaneous Approach (ICD-10-PCS; 2022-01-27)
PROC: 3E0U33Z Introduction of Anti-inflammatory into Joints, Percutaneous Approach (ICD-10-PCS; principal; 2022-01-27 09:45)
DX: M53.3 Sacrococcygeal disorders, not elsewhere classified (principal)
CPT/HCPCS: 76000-TC-FY

== ENCOUNTER 2022-01-27 16:28 | Emergency (ER) | payer OTHER ==
[2022-01-27 16:42] VITALS: BP 111/62; PULSE 85; TEMP 98; BMI 18.7
[2022-01-27 18:46] LABS: BASO % 0.6 % (0-2.0); EOS % 0.2 % (0-4.5); HEMATOCRIT 38.7 % (35.4-49); INR 1.09 (0.83-1.09); LYMPH % 13.4 % (8-40); MCH 31.8 pg (25.7-33.7); MCHC 33.7 g/dl (32.0-35.9); MEAN CELL VOLUME 94.5 fl (80-96); MEAN PLT VOLUME 9.6 fl (7.5-11.1); MONO % 1.4 % (3.8-10.2); NEUT % 84.4 % (42.8-82.8); PLATELET COUNT 184 10^3/uL (134-434); PROTHROMBIN TIME (PATIENT) 12.5 SEC (9.7-13.0); RDW 13.7 % (11.9-15.9)
[2022-01-27 18:57] LABS: CALCIUM 8.9 mg/dL (8.5-10.1)
[2022-01-27 18:58] LABS: ALBUMIN 3.8 g/dl (3.4-5.0); BLOOD UREA NITROGEN 14.7 mg/dL (7-18)
[2022-01-27 19:01] LABS: CREATININE 1.3 mg/dL (0.55-1.3)
[2022-01-27 19:03] LABS: BILIRUBIN,TOTAL 0.5 mg/dL (0.2-1); TOT PROT 7.1 g/dl (6.4-8.2)
[2022-01-27 19:06] LABS: N-TERMINAL BNP 33.4 pg/ml (5-125)
== END 2022-01-27 21:00 | disposition home or self-care (01) ==
LOC: JER 16:28
DX: R60.0 Localized edema (principal)
CPT/HCPCS: 0241U-QW; 36415; 71046-TC-FY; 80053; 83880; 84484; 85025; 85610; 93005; 93010; 93971-TC; 99285-25

== ENCOUNTER 2022-04-22 22:59 | Emergency (ER) | payer OTHER ==
[2022-04-22 23:02] VITALS: BP 127/76; PULSE 84; RESP 20; BMI 18.6
[2022-04-22] MEDS ORDERED: ACETAMINOPHEN 325 MG TABLET (FP) PO ONE (23:20)
[2022-04-22] MEDS ORDERED: ACETAMINOPHEN 325 MG TABLET (FP) ONE (23:28)
[2022-04-22] MEDS ORDERED: LACTULOSE 20 GM/30 ML UDC (FOR ORAL USE ONLY) PO ONE (23:38)
[2022-04-22] MEDS ORDERED: POLYETHYLENE GLYCOL (HEALTHYLAX) 3350 17 GM PACKET PO ONE (23:45)
[2022-04-23] MEDS ORDERED: LACTULOSE 20 GM/30 ML UDC (FOR ORAL USE ONLY) ONE (00:01)
[2022-04-23] MEDS ORDERED: POLYETHYLENE GLYCOL (HEALTHYLAX) 3350 17 GM PACKET ONE (00:01)
== END 2022-04-23 05:15 | disposition home or self-care (01) ==
LOC: JER 22:59
DX: K46.9 Unspecified abdominal hernia without obstruction or gangrene (principal)
CPT/HCPCS: 74176-TC; 99285-25

== ENCOUNTER 2022-07-08 01:28 | Emergency (ER) | payer OTHER ==
[2022-07-08] MEDS ORDERED: morphine CARPU-JECT 2 MG/1 ML DISP.SYRIN IVPUSH ONE (01:41)
[2022-07-08] MEDS ORDERED: SODIUM CHLORIDE 0.9% 500 ML INFUS.BAG IV ONE (01:41)
[2022-07-08] MEDS ORDERED: POLYETHYLENE GLYCOL (HEALTHYLAX) 3350 17 GM PACKET PO ONE (01:45)
[2022-07-08 01:51] VITALS: RESP 18; BMI 19.6
[2022-07-08] MEDS ORDERED: POLYETHYLENE GLYCOL (HEALTHYLAX) 3350 17 GM PACKET ONE (02:17)
[2022-07-08] MEDS ORDERED: KETOROLAC TROMETHAMINE 30 MG/1 ML VIAL IVPUSH ONE (02:38)
[2022-07-08 02:40] LABS: BASO % 0.5 % (0-2.0); EOS % 10.5 % (0-4.5); HEMATOCRIT 29.3 % (35.4-49); HEMOGLOBIN 9.9 GM/dL (11.7-16.9); MCH 32.6 pg (25.7-33.7); MCHC 33.7 g/dl (32.0-35.9); MEAN CELL VOLUME 96.6 fl (80-96); MEAN PLT VOLUME 7.9 fl (7.5-11.1); MONO % 12.3 % (3.8-10.2); NEUT % 52.7 % (42.8-82.8); PLATELET COUNT 347 10^3/uL (134-434); RBC 3.03 M/mm3 (4.00-5.60); RDW 14.5 % (11.9-15.9); WHITE BLOOD COUNT 8.2 K/mm3 (4.0-10.0)
[2022-07-08] MEDS ORDERED: KETOROLAC TROMETHAMINE 30 MG/1 ML VIAL ONE (02:44)
[2022-07-08 03:07] LABS: BLOOD UREA NITROGEN 14.2 mg/dL (7-18); CALCIUM 8.7 mg/dL (8.5-10.1)
[2022-07-08 03:10] LABS: CREATININE 0.9 mg/dL (0.55-1.3)
[2022-07-08 03:12] LABS: BILIRUBIN,TOTAL 0.3 mg/dL (0.2-1)
[2022-07-08 03:20] LABS: LACTIC ACID 2.8 mmol/L (0.4-2.0)
[2022-07-08] MEDS ORDERED: ACETAMINOPHEN 1000 MG/100 ML BAG IVPB ONE (03:34)
[2022-07-08 04:47] LABS: PH,URINE 6.5 (5.0-8.0); URINE APPEARANCE CLEAR; URINE BILIRUBIN NEGATIVE (NEGATIVE); URINE COLOR YELLOW; URINE GLUCOSE (UA) NEGATIVE (NEGATIVE); URINE KETONE NEGATIVE (NEGATIVE); URINE LEUK ESTERASE NEGATIVE (NEGATIVE); URINE NITRITE NEGATIVE (NEGATIVE); URINE PROTEIN NEGATIVE (NEGATIVE); URINE UROBILINOGEN 0.2 mg/dL (0.2-1.0)
[2022-07-08 05:48] VITALS: BP 110/66; PULSE 81; TEMP 98.6
== END 2022-07-08 06:43 | disposition home or self-care (01) ==
LOC: JER 01:28
PROC: 3E033GC Introduction of Other Therapeutic Substance into Peripheral Vein, Percutaneous Approach (ICD-10-PCS; principal; 2022-07-08)
DX: M96.842 Postprocedural seroma of a musculoskeletal structure following a musculoskeletal system procedure (principal); R10.84 Generalized abdominal pain
CPT/HCPCS: 36415; 74174-TC; 80053; 81003; 83605; 85025; 87086; 99285-25

== ENCOUNTER 2022-10-30 23:42 | Observation (INO) | payer OTHER ==
[2022-10-30 23:49] VITALS: BMI 18.3
[2022-10-31] MEDS ORDERED: DEXAMETHASONE SOD PHOSPHATE 10 MG/1 ML VIAL IVPUSH ONE (00:26)
[2022-10-31] MEDS ORDERED: DEXAMETHASONE SOD PHOSPHATE 10 MG/1 ML VIAL ONE (00:36)
[2022-10-31 01:30] LABS: BASO % 0.6 % (0-2.0); EOS % 2.8 % (0-4.5); HEMATOCRIT 39.1 % (35.4-49); HEMOGLOBIN 13.4 GM/dL (11.7-16.9); MCH 30.8 pg (25.7-33.7); MCHC 34.3 g/dl (32.0-35.9); MEAN CELL VOLUME 89.6 fl (80-96); MEAN PLT VOLUME 8.7 fl (7.5-11.1); MONO % 8.8 % (3.8-10.2); NEUT % 64.8 % (42.8-82.8); PLATELET COUNT 209 10^3/uL (134-434); RBC 4.36 M/mm3 (4.00-5.60); RDW 15.4 % (11.9-15.9); WHITE BLOOD COUNT 10.6 K/mm3 (4.0-10.0)
[2022-10-31 01:37] LABS: INR 1.02 (0.83-1.09); PROTHROMBIN TIME (PATIENT) 11.8 SEC (9.7-13.0)
[2022-10-31 01:39] LABS: ACTIVATED PTT 26.2 SECONDS (25.2-36.5)
[2022-10-31 01:51] LABS: ALBUMIN 3.6 g/dl (3.4-5.0); CALCIUM 9.3 mg/dL (8.5-10.1)
[2022-10-31 01:52] LABS: BLOOD UREA NITROGEN 20.4 mg/dL (7-18); MAGNESIUM 2.2 mg/dL (1.8-2.4)
[2022-10-31 01:54] LABS: CREATININE 0.9 mg/dL (0.55-1.3)
[2022-10-31 01:56] LABS: BILIRUBIN,TOTAL 0.3 mg/dL (0.2-1); TOT PROT 6.7 g/dl (6.4-8.2)
[2022-10-31] MEDS ORDERED: MAGNESIUM SULF 50% (8.12 MEQ/2 ML-1 GM VIAL) IVPB ONE (01:56)
[2022-10-31 01:59] LABS: N-TERMINAL BNP 11.9 pg/ml (5-125)
[2022-10-31] MEDS ORDERED: MAGNESIUM SULFATE IN WATER 2 GM/50 ML IVPB IVPB ONE (02:13)
[2022-10-31] MEDS: ALBUTEROL SO4 2.5/IPRATROPIUM 0.5 INH SOL 3 ML VIAL.NEB. NEB SCH ×4 (02:26→04:11)
[2022-10-31] MEDS ORDERED: AZITHROMYCIN IVPB 500 MG in DEXTROSE 5%-WATER - 250 ML IVPB ONE (03:49)
[2022-10-31] MEDS ORDERED: ALBUTEROL SO4 2.5/IPRATROPIUM 0.5 INH SOL 3 ML VIAL.NEB. NEB PRN (03:49)
[2022-10-31] MEDS ORDERED: ACETAMINOPHEN 1000 MG/100 ML BAG IVPB PRN (03:50)
[2022-10-31] MEDS ORDERED: CEFTRIAXONE 1 GM/50 ML BAG ONE ×2 (05:30→09:14)
[2022-10-31] MEDS ORDERED: AZITHROMYCIN IVPB 500 MG/250 ML BAG IVPB ONE (05:31)
[2022-10-31] MEDS: CEFTRIAXONE 1 GM in DEXTROSE 5%-WATER - 50 ML IVPB SCH ×2 (05:37→09:21)
[2022-10-31 07:39] LABS: HEMATOCRIT 40.7 % (35.4-49); HEMOGLOBIN 13.8 GM/dL (11.7-16.9); MCH 30.7 pg (25.7-33.7); MEAN CELL VOLUME 90.2 fl (80-96); MEAN PLT VOLUME 9.6 fl (7.5-11.1); PLATELET COUNT 218 10^3/uL (134-434); RBC 4.51 M/mm3 (4.00-5.60); RDW 15.1 % (11.9-15.9); WHITE BLOOD COUNT 9.4 K/mm3 (4.0-10.0)
[2022-10-31 07:53] LABS: CALCIUM 8.8 mg/dL (8.5-10.1)
[2022-10-31 07:54] LABS: ALBUMIN 3.7 g/dl (3.4-5.0); BLOOD UREA NITROGEN 17.6 mg/dL (7-18)
[2022-10-31 07:58] LABS: BILIRUBIN,TOTAL 0.4 mg/dL (0.2-1)
[2022-10-31 08:40] LABS: ANISOCYTOSIS 0; HELMET CELLS 0; HOWELL-JOLLY BODIES 0; MACROCYTOSIS 0; OVALOCYTE 0; ROULEAU 0; SICKELED CELLS 0; TARGET CELLS 0; TEAR DROP CELLS 0; TOXIC GRANULATION 0
[2022-10-31] MEDS ORDERED: ENOXAPARIN NA (PORCINE) 40 MG/0.4 ML DISP.SYRIN SQ ONE (09:13)
[2022-10-31] MEDS ORDERED: ALBUTEROL SO4 2.5/IPRATROPIUM 0.5 INH SOL 3 ML VIAL.NEB. NEB ONE (09:13)
[2022-10-31] MEDS ORDERED: methylPREDNISolone NA SUCC 40 MG/1 ML VIAL ONE ×2 (09:14→18:04)
[2022-10-31] MEDS: methylPREDNISolone NA SUCC 40 MG/1 ML VIAL IVPUSH SCH ×2 (09:18→18:05)
[2022-10-31] MEDS: ENOXAPARIN NA (PORCINE) 40 MG/0.4 ML DISP.SYRIN SQ SCH (09:23)
[2022-10-31] MEDS ORDERED: ACETAMINOPHEN INJECTION 100 ML IVPB ONE (09:34)
[2022-10-31 23:09] VITALS: RESP 18
[2022-11-01] MEDS: methylPREDNISolone NA SUCC 40 MG/1 ML VIAL IVPUSH SCH ×2 (01:43→10:50)
[2022-11-01] MEDS: ENOXAPARIN NA (PORCINE) 40 MG/0.4 ML DISP.SYRIN SQ SCH (10:50)
[2022-11-01] MEDS: CEFTRIAXONE 1 GM in DEXTROSE 5%-WATER - 50 ML IVPB SCH (10:50)
[2022-11-01 15:21] VITALS: BP 146/77; PULSE 81; TEMP 98.5
== END 2022-11-01 17:15 | disposition left against medical advice (07) ==
LOC: JER 23:42 → JERBED 10-31 02:59 → UNDOADMOB 10-31 02:59 → INTOOBSV 10-31 02:59 → JERBED 10-31 13:43 → J7W 10-31 18:52
PROVIDERS: ADMIT Internal Medicine; ATTEND Internal Medicine
PROC: 3E033NZ Introduction of Analgesics, Hypnotics, Sedatives into Peripheral Vein, Percutaneous Approach (ICD-10-PCS; principal; 2022-10-31)
PROC: 3E0F7GC Introduction of Other Therapeutic Substance into Respiratory Tract, Via Natural or Artificial Opening (ICD-10-PCS; 2022-10-31)
DX: Z87.891 Personal history of nicotine dependence (principal); Z91.013 Allergy to seafood; Z88.6 Allergy status to analgesic agent; F41.9 Anxiety disorder, unspecified; J45.909 Unspecified asthma, uncomplicated; F32.9 Major depressive disorder, single episode, unspecified; F11.20 Opioid dependence, uncomplicated; F10.20 Alcohol dependence, uncomplicated
CPT/HCPCS: 0241U-QW; 36415; 71045-TC-FY; 78452-TC; 80053; 80061; 83036; 83735; 83880; 84484; 85025; 85610; 85730; 93005; 93010; 93017; 93306-TC; 94640; 96374; 96375; 99285-25; A9502; G0378; J1100